=== PATIENT | female | born 1985 | race African-American/Black ===

== ENCOUNTER 2019-02-26 16:41 | Emergency (ER) | payer SELFPAY ==
[~2019-02-26 16:41] MED LIST: Iopamidol-370 76% 500 ML 1 ML ONE
[2019-02-26] MEDS ORDERED: Ondansetron PF 4 MG/2 ML Vial ONE ×2 (20:34→22:09)
[2019-02-26 20:55] LABS: #Lymphocytes 1.9 thou/uL (1.20-3.40); #Monocytes 0.5 thou/uL (0.11-0.59); #Neutrophils 4.6 thou/uL (1.40-6.50); %Basophils 0.3 % (0.0-1.0); %Eosinophils 0.5 % (0.0-10.0); %Lymphocytes 27.3 % (21.0-51.0); %Monocytes 6.7 % (0.0-10.0); %Neutrophils 65.2 % (42.0-75.0); Hemoglobin 15.2 g/dL (12.0-18.0); Mean Corpuscular HGB CONC 33.7 g/dL (32.0-36.0); Mean Corpuscular Hemoglobin 29.1 pg (27.0-31.0); Mean Corpuscular Volume 86.3 fL (78.0-98.0); Platelet Count 280 thou/uL (130-400); RBC Distribution Width 11.7 % (11.5-14.5); Red Blood Cell (RBC) Count 5.22 mill/uL (4.20-6.10); White Blood Cell (WBC) Count 7.1 thou/uL (4.8-10.8)
--- NOTE | 2019-02-26 21:07 | CT ---
EXAM: Abdomen and pelvic CT scan with contrast: HISTORY: Abdominal pain, nausea, and vomiting COMPARISON: None FINDINGS: The visualized lung bases are clear. Liver: Unremarkable. Gallbladder:Status post cholecystectomy without ductal dilatation. Pancreas:Unremarkable Spleen:Unremarkable. Adrenal glands:Unremarkable. Kidneys:No renal calculus or acute obstruction. Very tiny right kidney hypodense focus, statistically a small cyst. No evidence for bowel obstruction. No CT evidence for acute appendicitis. The urinary bladder is unremarkable. Reproductive system:Unremarkable No abscess, adenopathy, or abnormal fluid collection within the abdomen or pelvis. IMPRESSION: No significant acute process in the abdomen or pelvis.
[2019-02-26 21:17] LABS: ALT (SGPT) 12 U/L (8-55); AST (SGOT) 14 U/L (5-34); Albumin 5.2 g/dL (3.5-5.0); Alkaline Phosphatase 103 U/L (40-110); Anion Gap 12 mmol/L (10-20); BUN (Urea Nitrogen) 5 mg/dL (7.0-20.6); Bilirubin, Total 1.1 mg/dL (0.2-1.2); Calcium 10.5 mg/dL (7.8-10.44); Carbon Dioxide 28 mmol/L (22-29); Chloride 102 mmol/L (98-107); Estimated GFR-MDRD Greater than 90; Globulin 3.4 g/dL (2.4-3.5); Glucose 76 mg/dL (70-105); Lipase 10 U/L (8-78); Potassium 3.1 mmol/L (3.5-5.1); Protein, Total 8.6 g/dL (6.0-8.3); Sodium 139 mmol/L (136-145)
[2019-02-26] MEDS ORDERED: Acetaminophen 500 MG TAB ONE (22:09)
[2019-02-26] MEDS ORDERED: Promethazine HCl 25 MG/ML VIAL ONE (22:09)
[2019-02-26 23:19] LABS: Clarity Hazy (Clear)
[2019-02-26 23:20] LABS: Protein, Urine (Dipstick) Unable to Interpret mg/dL (Neg-Trace)
[2019-02-26 23:21] LABS: Bilirubin Unable to Interpret (Negative); Blood, Urine Unable to Interpret (Negative); Glucose, Urine (Dipstick) Unable to Interpret mg/dL (Negative); Leukocyte Unable to Interpret (Negative); Nitrite Unable to Interpret (Negative); Pregnancy Test - Urine (BHCG) Negative (Negative); Pregu Control Background? CLEAR/WHITE (CLR/WHITE); Pregu Control Bar Appear? YES (CONTROL BAR); Specific Gravity 1.022 (1.002-1.036); Urobilinogen UNABLE TO INTERPRET mg/dL (Less than 2)
[2019-02-26 23:23] LABS: Bacteria/HPF 1+ HPF (None Seen); Mucous/LPF 2+ LPF (<2+)
[2019-02-26] MEDS ORDERED: HYDROcodone/Acetaminophen 5/325 mg Tablet ONE (23:46)
[2019-02-26] MEDS ORDERED: Potassium Chloride 20 MEQ TAB ONE (23:56)
== END 2019-02-26 23:56 | disposition home or self-care (01) ==
LOC: ERS 16:41
DX: N39.0 Urinary tract infection, site not specified (principal); E11.9 Type 2 diabetes mellitus without complications; I10 Essential (primary) hypertension; F32.9 Major depressive disorder, single episode, unspecified; F41.9 Anxiety disorder, unspecified; Z79.899 Other long term (current) drug therapy
CPT/HCPCS: 74177; 80053; 81003; 81015; 81025; 83690; 85025; 87086; 96374; 96375; 96376; J2405; J2550; Q9967

== ENCOUNTER 2023-06-28 08:29 | Emergency (ER) | payer BC, SELFPAY ==
[2023-06-28] MEDS ORDERED: Acetaminophen 500 MG TAB ONE (10:19)
[2023-06-28] MEDS ORDERED: Ibuprofen 200 MG TAB ONE (10:20)
== END 2023-06-28 10:30 | disposition home or self-care (01) ==
LOC: ERS 08:29
DX: M79.641 Pain in right hand (principal); I10 Essential (primary) hypertension; E11.9 Type 2 diabetes mellitus without complications
CPT/HCPCS: 99283

== ENCOUNTER 2024-01-21 19:42 | Emergency (ER) | payer BC, OTHER ==
[2024-01-21] MEDS ORDERED: Ketorolac Tromethamine 30 MG (1 mL) VIAL ONE (21:39)
== END 2024-01-21 22:06 | disposition home or self-care (01) ==
LOC: ERS 19:42
DX: R59.0 Localized enlarged lymph nodes (principal); I10 Essential (primary) hypertension; E11.9 Type 2 diabetes mellitus without complications; Z76.0 Encounter for issue of repeat prescription
CPT/HCPCS: 96372; 99283; J1885

== ENCOUNTER 2024-02-20 17:44 | Emergency (ER) | payer OTHER ==
[2024-02-20] MEDS ORDERED: Dexamethasone 10 MG/ML VIAL ONE (18:38)
[2024-02-20 18:49] LABS: #Basophils 0.05 10x3/uL (0.0-0.2); %Basophils 0.8 % (0.0-1.0); %Eosinophils 6.3 % (0.0-10.0); %Lymphocytes 52.1 % (21.0-51.0); %Monocytes 7.6 % (0.0-10.0); %Neutrophils 32.9 % (42.0-75.0); Hematocrit 38.1 % (36.0-47.0); Hemoglobin 12.8 g/dL (12.0-16.0); Mean Corpuscular HGB CONC 33.6 g/dL (32.0-36.0); Mean Corpuscular Volume 83.4 fL (78.0-98.0); Mean Platelet Volume 9.4 fL (7.4-10.4); Platelet Count 241 10x3/uL (130-400); RBC Distribution Width 13.1 % (11.5-14.5); Red Blood Cell (RBC) Count 4.57 mill/uL (4.20-5.40)
[2024-02-20 19:04] LABS: BHCG - Serum Negative (NEGATIVE); Pregs Control Background? CLEAR/WHITE (CLR/WHITE); Pregs Control Bar Appear? YES (CONTROL BAR)
[2024-02-20 19:10] LABS: ALT (SGPT) 18 U/L (8-55); AST (SGOT) 16 U/L (5-34); Albumin 3.6 g/dL (3.5-5.0); Alkaline Phosphatase 79 U/L (40-110); Anion Gap 11 mmol/L (10-20); BUN (Urea Nitrogen) 9 mg/dL (7.0-18.7); Bilirubin, Total 0.4 mg/dL (0.2-1.2); Calc. Creatinine Clearance 0 mL/min (70-130); Calcium 8.5 mg/dL (7.8-10.44); Carbon Dioxide 27 mmol/L (22-29); Chloride 106 mmol/L (98-107); Estimated GFR 95; Globulin 3.1 g/dL (2.4-3.5); Glucose 94 mg/dL (70-105); Lipase 20 U/L (8-78); Potassium 3.6 mmol/L (3.5-5.1); Protein, Total 6.7 g/dL (6.0-8.3); Sodium 140 mmol/L (136-145)
[2024-02-20] MEDS ORDERED: Ondansetron ODT 4 MG TAB ONE (20:28)
[2024-02-20] MEDS ORDERED: Ibuprofen 200 MG TAB ONE (20:28)
[2024-02-20] MEDS ORDERED: Acetaminophen 500 MG TAB ONE (20:28)
[2024-02-20] MEDS ORDERED: Diazepam 5 MG TAB ONE (20:51)
[2024-02-20 21:35] LABS: MONO NEGATIVE CONTROL ZONE White (Negative) (White); MONO POSITIVE CONTROL Pink Line (Positive) (PINK/RED); Mononucleosis NEGATIVE (NEGATIVE)
== END 2024-02-20 20:40 | disposition home or self-care (01) ==
LOC: ERS 17:44
DX: B34.9 Viral infection, unspecified (principal); I10 Essential (primary) hypertension; E11.9 Type 2 diabetes mellitus without complications; Z55.6 Problems related to health literacy
CPT/HCPCS: 36415; 80053; 83690; 84703; 85025; 86308; 87081; 87430; 93005; 99283; J1100; Q0162

== ENCOUNTER 2024-02-21 12:12 | Inpatient (IN) | payer OTHER ==
[2024-02-21 13:01] LABS: #Basophils 0.03 10x3/uL (0.0-0.2); #Eosinophils Less than 0.03 10x3/uL (0.0-0.7); %Basophils 0.2 % (0.0-1.0); %Lymphocytes 7.8 % (21.0-51.0); %Monocytes 4.4 % (0.0-10.0); %Neutrophils 86.6 % (42.0-75.0); Hematocrit 36.8 % (36.0-47.0); Hemoglobin 12.1 g/dL (12.0-16.0); Mean Corpuscular HGB CONC 32.9 g/dL (32.0-36.0); Mean Corpuscular Hemoglobin 27.6 pg (27.0-31.0); Mean Platelet Volume 9.9 fL (7.4-10.4); Platelet Count 257 10x3/uL (130-400); RBC Distribution Width 12.9 % (11.5-14.5); Red Blood Cell (RBC) Count 4.38 mill/uL (4.20-5.40)
[2024-02-21 13:26] LABS: ALT (SGPT) 43 U/L (8-55); AST (SGOT) 37 U/L (5-34); Albumin 3.8 g/dL (3.5-5.0); Alkaline Phosphatase 86 U/L (40-110); Anion Gap 10 mmol/L (10-20); BUN (Urea Nitrogen) 10 mg/dL (7.0-18.7); Bilirubin, Total 0.3 mg/dL (0.2-1.2); Calc. Creatinine Clearance 0 mL/min (70-130); Calcium 9.1 mg/dL (7.8-10.44); Carbon Dioxide 27 mmol/L (22-29); Chloride 105 mmol/L (98-107); Estimated GFR 98; Glucose 164 mg/dL (70-105); Potassium 4.2 mmol/L (3.5-5.1); Protein, Total 6.8 g/dL (6.0-8.3); Sodium 138 mmol/L (136-145)
[2024-02-21] MEDS ORDERED: HYDROcodone/Acetaminophen 5/325 mg Tablet ONE (13:38)
[2024-02-21] MEDS ORDERED: Sodium Chloride 0.9% 100 ML ONE (13:38)
[2024-02-21] MEDS ORDERED: Ondansetron PF 4 MG/2 ML Vial ONE (13:38)
[2024-02-21] MEDS ORDERED: cefTRIAXone (ROCEPHIN) 1 GM VIAL ONE (13:38)
[2024-02-21] MEDS ORDERED: HYDROmorphone 0.5 MG/0.5 ML SYRINGE ONE (15:08)
[2024-02-21 16:14] LABS: Lactic Acid 1.61 mmol/L (0.5-2.2)
[2024-02-21 16:30] LABS: Bilirubin Negative (Negative); Blood, Urine Negative (Negative); CAUTI Indications for Culture Dysuria,urgency,freq; Clarity Turbid (Clear); Glucose, Urine (Dipstick) Normal (Negative); Ketone, Urine Negative (Negative); Leukocyte Negative Leu/uL (Negative); Nitrite Negative (Negative); Protein, Urine (Dipstick) 20 mg/dL (Neg-Trace); Specific Gravity, Urine 1.012 (1.002-1.036); Urobilinogen Normal mg/dL (Less than 2); pH, Urine 7.5 (5.0-9.0)
[2024-02-21 16:51] LABS: Urine Culture Reflex No No
[2024-02-21 16:57] LABS: Bacteria/HPF 4+ HPF (None Seen); RBC/HPF 0-3 HPF (0-3)
[2024-02-21 16:58] LABS: Urine Culture Reflex Yes Yes; Yeast-Budding 1+ HPF (None Seen)
[2024-02-21] MEDS ORDERED: Ketorolac Tromethamine 30 MG (1 mL) VIAL IVP PRN (18:54)
[2024-02-21] MEDS ORDERED: Acetaminophen 325 MG TAB PO PRN (18:54)
[2024-02-21 20:08] LABS: Hemoglobin A1c 5.4 % (4.0-6.0)
[2024-02-21 21:29] VITALS: BMI 29.7
[2024-02-21] MEDS: hydrOXYzine 25 MG TAB PO SCH (21:59)
[2024-02-21] MEDS: Enoxaparin 40 MG (0.4 mL) SYRINGE SC SCH (21:59)
[2024-02-21] MEDS: Sodium Chloride 0.9% 1,000 ML IV SCH (21:59)
[2024-02-21] MEDS: Morphine 2 MG/ML VIAL SLOW IVP PRN (21:59)
[2024-02-21] MEDS: traMADol HCl 50 MG TAB PO PRN (22:09)
[2024-02-21] MEDS: HYDROmorphone 0.5 MG/0.5 ML SYRINGE SLOW IVP SCH (23:56)
[2024-02-22] MEDS: HYDROcodone/Acetaminophen 10/325 mg Tablet PO PRN (04:19)
[2024-02-22 05:49] LABS: #Basophils 0.06 10x3/uL (0.0-0.2); %Basophils 0.4 % (0.0-1.0); %Eosinophils 0.5 % (0.0-10.0); %Lymphocytes 20.1 % (21.0-51.0); %Monocytes 5.3 % (0.0-10.0); %Neutrophils 72.6 % (42.0-75.0); Hemoglobin 11.6 g/dL (12.0-16.0); Mean Corpuscular HGB CONC 33.1 g/dL (32.0-36.0); Mean Corpuscular Hemoglobin 28.1 pg (27.0-31.0); Mean Corpuscular Volume 84.7 fL (78.0-98.0); Mean Platelet Volume 9.6 fL (7.4-10.4); Platelet Count 234 10x3/uL (130-400); RBC Distribution Width 13.2 % (11.5-14.5); Red Blood Cell (RBC) Count 4.13 mill/uL (4.20-5.40)
[2024-02-22 06:03] LABS: Anion Gap 12 mmol/L (10-20); BUN (Urea Nitrogen) 11 mg/dL (7.0-18.7); Calc. Creatinine Clearance 128 mL/min (70-130); Calcium 8.1 mg/dL (7.8-10.44); Carbon Dioxide 24 mmol/L (22-29); Chloride 108 mmol/L (98-107); Estimated GFR 111; Glucose 124 mg/dL (70-105); Potassium 4.2 mmol/L (3.5-5.1); Sodium 140 mmol/L (136-145)
[2024-02-22] MEDS: Ondansetron PF 4 MG/2 ML Vial IVP PRN (06:19)
[2024-02-22] MEDS: Enoxaparin 40 MG (0.4 mL) SYRINGE SC SCH (08:23)
[2024-02-22] MEDS ORDERED: Ketorolac Tromethamine 30 MG (1 mL) VIAL IVP SCH (08:45)
[2024-02-22] MEDS: Pantoprazole DR 40 MG TAB PO SCH (09:58)
[2024-02-22] MEDS ORDERED: Fentanyl 100 MCG/2 ML VIAL SLOW IVP PRN (12:43)
[2024-02-22] MEDS: cefTRIAXone\\ROCEPHIN 1 GM in Sodium Chloride 0.9% 100 ML IVPB SCH (13:33)
[2024-02-22] MEDS: fentaNYL 50 mcg/mL 1 mL Vial SLOW IVP PRN (13:33)
[2024-02-22] MEDS: Ibuprofen 800 MG TAB PO SCH (19:43)
[2024-02-23 04:28] LABS: #Basophils 0.04 10x3/uL (0.0-0.2); %Basophils 0.5 % (0.0-1.0); %Eosinophils 3.8 % (0.0-10.0); %Lymphocytes 39.8 % (21.0-51.0); %Monocytes 6.9 % (0.0-10.0); %Neutrophils 47.7 % (42.0-75.0); Hematocrit 32.7 % (36.0-47.0); Hemoglobin 10.7 g/dL (12.0-16.0); Mean Corpuscular HGB CONC 32.7 g/dL (32.0-36.0); Mean Corpuscular Hemoglobin 28.1 pg (27.0-31.0); Mean Corpuscular Volume 85.8 fL (78.0-98.0); Mean Platelet Volume 9.8 fL (7.4-10.4); Platelet Count 205 10x3/uL (130-400); RBC Distribution Width 13.9 % (11.5-14.5); Red Blood Cell (RBC) Count 3.81 mill/uL (4.20-5.40)
[2024-02-23 04:57] LABS: Anion Gap 11 mmol/L (10-20); BUN (Urea Nitrogen) 18 mg/dL (7.0-18.7); Calc. Creatinine Clearance 104 mL/min (70-130); Calcium 8.3 mg/dL (7.8-10.44); Carbon Dioxide 27 mmol/L (22-29); Chloride 108 mmol/L (98-107); Estimated GFR 87; Glucose 98 mg/dL (70-105); Potassium 4.1 mmol/L (3.5-5.1); Sodium 142 mmol/L (136-145)
[2024-02-23 08:02] VITALS: TEMP 97.7
[2024-02-23] MEDS ORDERED: ALPRAZolam 1 MG TAB PO PRN (08:55)
[2024-02-23] MEDS: Bupropion 150 MG SR.TAB PO SCH (09:21)
[2024-02-23] MEDS: Escitalopram Oxalate 10 mg Tablet PO SCH (09:21)
[2024-02-23] MEDS: Polyethylene Glycol 3350 17 GM Packet PO SCH (10:54)
[2024-02-23] MEDS: Bisacodyl 5 MG TAB PO SCH (10:54)
[2024-02-23] MEDS: Cyclobenzaprine 10 MG TAB PO SCH (11:11)
[2024-02-23 12:14] VITALS: BP 126/84
[2024-02-23] MEDS ORDERED: Cyclobenzaprine 10 MG TAB PO SCH (15:00)
[2024-02-24] MEDS ORDERED: Polyethylene Glycol 3350 17 GM Packet PO SCH (09:00)
== END 2024-02-23 14:38 | disposition home or self-care (01) | DRG 690 ==
LOC: ERS 12:12 → T4-A 18:24
PROVIDERS: ADMIT Internal Medicine; ATTEND Internal Medicine
DX: N10 Acute pyelonephritis (principal); I10 Essential (primary) hypertension; E11.9 Type 2 diabetes mellitus without complications; Z90.49 Acquired absence of other specified parts of digestive tract; F41.9 Anxiety disorder, unspecified; F32.A Depression, unspecified; Z90.710 Acquired absence of both cervix and uterus; Z88.8 Allergy status to other drugs, medicaments and biological substances; Z82.49 Family history of ischemic heart disease and other diseases of the circulatory system; Z83.3 Family history of diabetes mellitus; Z79.899 Other long term (current) drug therapy; N20.0 Calculus of kidney
CPT/HCPCS: 36415; 36416; 74176; 76770; 80048; 80053; 81001; 83036; 83605; 85025; 87040; 87086; 96374; 96375; J0696; J1650; J2272; J2405; J3010; J7030

== ENCOUNTER 2024-02-25 21:16 | Emergency (ER) | payer OTHER ==
[~2024-02-25 21:16] MED LIST changes: -Iopamidol-370 76% 500 ML 1 ML ONE; +Iopamidol-370 76% 500 ML MDV (1 ML CHARGE) ONE
[2024-02-25] MEDS ORDERED: Ondansetron PF 4 MG/2 ML Vial ONE (21:53)
[2024-02-25 22:29] LABS: #Basophils 0.03 10x3/uL (0.0-0.2); %Basophils 0.6 % (0.0-1.0); %Eosinophils 2.7 % (0.0-10.0); %Lymphocytes 36.7 % (21.0-51.0); %Monocytes 9.4 % (0.0-10.0); %Neutrophils 49.4 % (42.0-75.0); Hematocrit 34.8 % (36.0-47.0); Hemoglobin 11.3 g/dL (12.0-16.0); Mean Corpuscular HGB CONC 32.5 g/dL (32.0-36.0); Mean Corpuscular Volume 86.4 fL (78.0-98.0); Mean Platelet Volume 9.2 fL (7.4-10.4); Platelet Count 197 10x3/uL (130-400); RBC Distribution Width 13.6 % (11.5-14.5); Red Blood Cell (RBC) Count 4.03 mill/uL (4.20-5.40)
[2024-02-25 22:46] LABS: Bilirubin Negative (Negative); Blood, Urine Negative (Negative); CAUTI Indications for Culture Pelvic or flank pain; Clarity Clear (Clear); Glucose, Urine (Dipstick) Normal (Negative); Ketone, Urine Negative (Negative); Leukocyte Negative Leu/uL (Negative); Nitrite Negative (Negative); Protein, Urine (Dipstick) Negative (Neg-Trace); RBC/HPF None Seen HPF (0-3); Specific Gravity, Urine 1.004 (1.002-1.036); Squamous Epithelial 0-3 HPF (0-3); Urobilinogen Normal mg/dL (Less than 2); WBC/HPF 0-3 HPF (0-3); pH, Urine 7.5 (5.0-9.0)
[2024-02-25 22:47] LABS: Bacteria/HPF Rare-Few HPF (None Seen); Urine Culture Reflex No No
[2024-02-25 22:48] LABS: ALT (SGPT) 169 U/L (8-55); AST (SGOT) 141 U/L (5-34); Albumin 3.6 g/dL (3.5-5.0); Alkaline Phosphatase 77 U/L (40-110); Anion Gap 13 mmol/L (10-20); BUN (Urea Nitrogen) 15 mg/dL (7.0-18.7); Bilirubin, Total 0.5 mg/dL (0.2-1.2); Calc. Creatinine Clearance 0 mL/min (70-130); Carbon Dioxide 24 mmol/L (22-29); Chloride 106 mmol/L (98-107); Estimated GFR 88; Glucose 92 mg/dL (70-105); Lipase 16 U/L (8-78); Potassium 4.5 mmol/L (3.5-5.1); Protein, Total 6.6 g/dL (6.0-8.3); Sodium 138 mmol/L (136-145)
[2024-02-25] MEDS ORDERED: HYDROcodone/Acetaminophen 5/325 mg Tablet ONE (23:14)
== END 2024-02-26 00:02 | disposition home or self-care (01) ==
LOC: ERS 21:16
DX: R10.9 Unspecified abdominal pain (principal); I10 Essential (primary) hypertension; E11.9 Type 2 diabetes mellitus without complications
CPT/HCPCS: 36415; 74177; 80053; 81001; 83605; 83690; 85025; 96374; J2405; Q9967

== ENCOUNTER 2024-03-15 17:33 | Emergency (ER) | payer OTHER ==
[2024-03-15] MEDS ORDERED: Ondansetron PF 4 MG/2 ML Vial ONE (17:47)
[2024-03-15] MEDS ORDERED: Morphine 4 MG/ML VIAL ONE (17:47)
[2024-03-15 18:05] LABS: #Basophils Less than 0.03 10x3/uL (0.0-0.2); %Basophils 0.4 % (0.0-1.0); %Eosinophils 5.3 % (0.0-10.0); %Lymphocytes 35.5 % (21.0-51.0); %Neutrophils 50.6 % (42.0-75.0); Hematocrit 38.7 % (36.0-47.0); Hemoglobin 12.9 g/dL (12.0-16.0); Mean Corpuscular HGB CONC 33.3 g/dL (32.0-36.0); Mean Corpuscular Hemoglobin 28.3 pg (27.0-31.0); Mean Corpuscular Volume 84.9 fL (78.0-98.0); Mean Platelet Volume 9.8 fL (7.4-10.4); Platelet Count 290 10x3/uL (130-400); RBC Distribution Width 13.4 % (11.5-14.5); Red Blood Cell (RBC) Count 4.56 mill/uL (4.20-5.40)
[2024-03-15 18:25] LABS: Bacteria/HPF None Seen HPF (None Seen); Bilirubin Negative (Negative); Blood, Urine Negative (Negative); CAUTI Indications for Culture Pelvic or flank pain; Clarity Turbid (Clear); Glucose, Urine (Dipstick) Normal (Negative); Ketone, Urine Negative (Negative); Leukocyte 25 Leu/uL (Negative); Nitrite Negative (Negative); Protein, Urine (Dipstick) 10 mg/dL (Neg-Trace); RBC/HPF 0-3 HPF (0-3); Specific Gravity, Urine 1.019 (1.002-1.036); Urobilinogen Normal mg/dL (Less than 2); WBC/HPF 0-3 HPF (0-3); pH, Urine 7.5 (5.0-9.0)
[2024-03-15 18:26] LABS: ALT (SGPT) 37 U/L (8-55); AST (SGOT) 36 U/L (5-34); Albumin 3.9 g/dL (3.5-5.0); Alkaline Phosphatase 83 U/L (40-110); Anion Gap 13 mmol/L (10-20); BUN (Urea Nitrogen) 16 mg/dL (7.0-18.7); Bilirubin, Total 0.6 mg/dL (0.2-1.2); Calc. Creatinine Clearance 0 mL/min (70-130); Carbon Dioxide 24 mmol/L (22-29); Chloride 111 mmol/L (98-107); Estimated GFR 69; Globulin 3.4 g/dL (2.4-3.5); Glucose 68 mg/dL (70-105); Potassium 4.9 mmol/L (3.5-5.1); Protein, Total 7.3 g/dL (6.0-8.3); Sodium 143 mmol/L (136-145)
[2024-03-15 18:27] LABS: Urine Culture Reflex No No
[2024-03-15 18:31] LABS: BHCG - Serum Negative (NEGATIVE); Pregs Control Background? CLEAR/WHITE (CLR/WHITE); Pregs Control Bar Appear? YES (CONTROL BAR)
[2024-03-15] MEDS ORDERED: traMADol HCl 50 MG TAB ONE ×2 (19:49→19:57)
== END 2024-03-15 20:06 | disposition home or self-care (01) ==
LOC: ERS 17:33
DX: R10.9 Unspecified abdominal pain (principal); R30.0 Dysuria; E11.9 Type 2 diabetes mellitus without complications; I10 Essential (primary) hypertension
CPT/HCPCS: 74176; 80053; 81001; 83605; 84703; 85025; 87086; 96374; 96375; J2272; J2405

== ENCOUNTER 2024-03-16 02:43 | Emergency (ER) | payer OTHER ==
[2024-03-16] MEDS ORDERED: Dicyclomine 20 MG/2 ML VIAL ONE (04:18)
== END 2024-03-16 04:40 | disposition home or self-care (01) ==
LOC: ERS 02:43
DX: M54.50 Low back pain, unspecified (principal); I10 Essential (primary) hypertension; E11.9 Type 2 diabetes mellitus without complications
CPT/HCPCS: 96372; 99283

== ENCOUNTER 2024-03-16 21:13 | Emergency (ER) | payer OTHER ==
[2024-03-16 21:45] LABS: #Basophils Less than 0.03 10x3/uL (0.0-0.2); %Basophils 0.4 % (0.0-1.0); %Eosinophils 6.1 % (0.0-10.0); %Lymphocytes 35.4 % (21.0-51.0); %Neutrophils 50.9 % (42.0-75.0); Hematocrit 36.3 % (36.0-47.0); Hemoglobin 11.8 g/dL (12.0-16.0); Mean Corpuscular HGB CONC 32.5 g/dL (32.0-36.0); Mean Corpuscular Hemoglobin 28.4 pg (27.0-31.0); Mean Corpuscular Volume 87.3 fL (78.0-98.0); Mean Platelet Volume 9.8 fL (7.4-10.4); Platelet Count 253 10x3/uL (130-400); RBC Distribution Width 13.8 % (11.5-14.5); Red Blood Cell (RBC) Count 4.16 mill/uL (4.20-5.40)
[2024-03-16 22:00] LABS: BHCG - Serum Negative (NEGATIVE); Pregs Control Background? CLEAR/WHITE (CLR/WHITE); Pregs Control Bar Appear? YES (CONTROL BAR)
[2024-03-16 22:06] LABS: ALT (SGPT) 30 U/L (8-55); AST (SGOT) 24 U/L (5-34); Albumin 3.8 g/dL (3.5-5.0); Alkaline Phosphatase 85 U/L (40-110); Anion Gap 12 mmol/L (10-20); BUN (Urea Nitrogen) 17 mg/dL (7.0-18.7); Bilirubin, Total 0.4 mg/dL (0.2-1.2); Calc. Creatinine Clearance 0 mL/min (70-130); Calcium 8.8 mg/dL (7.8-10.44); Carbon Dioxide 23 mmol/L (22-29); Chloride 111 mmol/L (98-107); Estimated GFR 86; Glucose 117 mg/dL (70-105); Potassium 4.3 mmol/L (3.5-5.1); Protein, Total 6.8 g/dL (6.0-8.3); Sodium 142 mmol/L (136-145)
[2024-03-17 00:24] LABS: Bilirubin Negative (Negative); Blood, Urine Negative (Negative); CAUTI Indications for Culture Dysuria,urgency,freq; Clarity Clear (Clear); Glucose, Urine (Dipstick) Normal (Negative); Ketone, Urine Negative (Negative); Leukocyte 250 Leu/uL (Negative); Nitrite Negative (Negative); Protein, Urine (Dipstick) Negative (Neg-Trace); RBC/HPF 0-3 HPF (0-3); Specific Gravity, Urine 1.021 (1.002-1.036); Urobilinogen Normal mg/dL (Less than 2); WBC/HPF 0-3 HPF (0-3)
[2024-03-17 00:26] LABS: Bacteria/HPF 1+ HPF (None Seen)
[2024-03-17 00:27] LABS: Urine Culture Reflex No No
[2024-03-17] MEDS ORDERED: Droperidol 5 MG/2 ML VIAL ONE (01:08)
[2024-03-17] MEDS ORDERED: Morphine 4 MG/ML VIAL ONE (01:08)
== END 2024-03-17 01:48 | disposition home or self-care (01) ==
LOC: ERS 21:13
DX: R10.9 Unspecified abdominal pain (principal); R11.2 Nausea with vomiting, unspecified; E11.9 Type 2 diabetes mellitus without complications; I10 Essential (primary) hypertension; Z79.899 Other long term (current) drug therapy
CPT/HCPCS: 36415; 80053; 81001; 83605; 84703; 85025; 96374; 96375; J1790; J2272

== ENCOUNTER 2024-04-06 10:20 | Emergency (ER) | payer OTHER ==
[2024-04-06] MEDS ORDERED: Dexamethasone 10 MG/ML VIAL ONE (11:28)
[2024-04-06] MEDS ORDERED: Ibuprofen 800 MG TAB ONE (11:29)
[2024-04-06] MEDS ORDERED: Metoprolol Tartrate 25 MG TAB ONE (11:43)
== END 2024-04-06 11:46 | disposition home or self-care (01) ==
LOC: ERS 10:20
DX: J18.9 Pneumonia, unspecified organism (principal); I10 Essential (primary) hypertension; E11.9 Type 2 diabetes mellitus without complications
CPT/HCPCS: 87081; 87430; 99283; J1100

== ENCOUNTER 2024-04-06 17:13 | Observation (INO) | payer OTHER ==
[2024-04-06] MEDS ORDERED: Ondansetron PF 4 MG/2 ML Vial ONE ×2 (18:47→23:18)
[2024-04-06 18:49] LABS: #Basophils Less than 0.03 10x3/uL (0.0-0.2); #Eosinophils Less than 0.03 10x3/uL (0.0-0.7); %Basophils 0.1 % (0.0-1.0); %Eosinophils 0.1 % (0.0-10.0); %Lymphocytes 7.1 % (21.0-51.0); %Monocytes 0.9 % (0.0-10.0); %Neutrophils 91.1 % (42.0-75.0); Hematocrit 39.2 % (36.0-47.0); Hemoglobin 13.3 g/dL (12.0-16.0); Mean Corpuscular HGB CONC 33.9 g/dL (32.0-36.0); Mean Corpuscular Hemoglobin 27.8 pg (27.0-31.0); Mean Corpuscular Volume 81.8 fL (78.0-98.0); Mean Platelet Volume 9.7 fL (7.4-10.4); Platelet Count 277 10x3/uL (130-400); RBC Distribution Width 13.5 % (11.5-14.5); Red Blood Cell (RBC) Count 4.79 mill/uL (4.20-5.40)
[2024-04-06 19:06] LABS: ALT (SGPT) 27 U/L (8-55); AST (SGOT) 25 U/L (5-34); Albumin 4.1 g/dL (3.5-5.0); Alkaline Phosphatase 87 U/L (40-110); Anion Gap 15 mmol/L (10-20); BUN (Urea Nitrogen) 13 mg/dL (7.0-18.7); Bilirubin, Total 0.3 mg/dL (0.2-1.2); Calc. Creatinine Clearance 0 mL/min (70-130); Calcium 8.8 mg/dL (7.8-10.44); Carbon Dioxide 19 mmol/L (22-29); Chloride 113 mmol/L (98-107); Estimated GFR 81; Globulin 3.5 g/dL (2.4-3.5); Glucose 116 mg/dL (70-105); Lipase 19 U/L (8-78); Magnesium 1.9 mg/dL (1.6-2.6); Potassium 4.6 mmol/L (3.5-5.1); Protein, Total 7.6 g/dL (6.0-8.3); Sodium 142 mmol/L (136-145)
[2024-04-06 19:43] LABS: Troponin I Less than 0.010 ng/mL (< 0.028)
[2024-04-06] MEDS ORDERED: Ibuprofen 800 MG TAB ONE (19:46)
[2024-04-06] MEDS ORDERED: Promethazine HCl 25 MG/ML VIAL ONE (21:13)
[2024-04-06] MEDS ORDERED: diphenhydrAMINE 50 MG/ML VIAL ONE (21:13)
[2024-04-06 21:41] LABS: Lactic Acid 1.65 mmol/L (0.5-2.2)
[2024-04-06] MEDS ORDERED: Morphine 4 MG/ML VIAL ONE (22:38)
[2024-04-06 23:33] LABS: Bacteria/HPF None Seen HPF (None Seen); Bilirubin Negative (Negative); Blood, Urine Negative (Negative); CAUTI Indications for Culture Fever or rigors; Clarity Clear (Clear); Glucose, Urine (Dipstick) Normal (Negative); Ketone, Urine Negative (Negative); Leukocyte Negative Leu/uL (Negative); Nitrite Negative (Negative); Protein, Urine (Dipstick) Negative (Neg-Trace); RBC/HPF 0-3 HPF (0-3); Specific Gravity, Urine 1.022 (1.002-1.036); Urobilinogen Normal mg/dL (Less than 2); WBC/HPF 0-3 HPF (0-3)
[2024-04-06 23:35] LABS: Urine Culture Reflex No No
[2024-04-06] MEDS ORDERED: cefTRIAXone (ROCEPHIN) 2 GM VIAL ONE (23:59)
[2024-04-06] MEDS ORDERED: Sodium Chloride 0.9% 100 ML ONE (23:59)
[2024-04-07] MEDS ORDERED: Dextrose 50% Abboject 50 ML SYRINGE SLOW IVP PRN (01:14)
[2024-04-07] MEDS ORDERED: Glucagon 1 MG/ML KIT IM PRN (01:14)
[2024-04-07] MEDS ORDERED: Dextrose 5% in Water 1,000 ML IV PRN (01:14)
[2024-04-07 01:41] LABS: Amphetamine Not Detected (NotDetected); Barbiturates Screen Not Detected (NotDetected); Benzodiazepine Screen Detected (NotDetected); Cocaine Metabolite Screen Not Detected (NotDetected); Methadone Not Detected (NotDetected); Methamphetamine Not Detected (NotDetected); Opiate Screen Not Detected (NotDetected); Oxycodone Screen Not Detected (NotDetected); Phencyclidine (PCP) Not Detected (NotDetected); THC/Cannabinoid Screen Not Detected (NotDetected); Tricyclic Screen Not Detected (NotDetected)
[2024-04-07] MEDS ORDERED: Azithromycin 500 MG VIAL ONE (01:41)
[2024-04-07 02:32] VITALS: BMI 35.6
[2024-04-07] MEDS: Lactated Ringer's 1,000 ML IV SCH (03:10)
[2024-04-07] MEDS: Acetaminophen 325 MG TAB PO PRN (03:10)
[2024-04-07] MEDS: Morphine 2 MG/ML VIAL SLOW IVP SCH (05:02)
[2024-04-07] MEDS: Zolpidem Tartrate 5 MG TAB PO SCH ×2 (05:02→23:48)
[2024-04-07 05:59] LABS: #Basophils Less than 0.03 10x3/uL (0.0-0.2); #Eosinophils Less than 0.03 10x3/uL (0.0-0.7); %Basophils 0.1 % (0.0-1.0); %Lymphocytes 9.3 % (21.0-51.0); %Monocytes 1.9 % (0.0-10.0); %Neutrophils 88.1 % (42.0-75.0); Hematocrit 34.8 % (36.0-47.0); Hemoglobin 11.5 g/dL (12.0-16.0); Mean Corpuscular Volume 84.9 fL (78.0-98.0); Mean Platelet Volume 10.1 fL (7.4-10.4); Platelet Count 248 10x3/uL (130-400); RBC Distribution Width 13.5 % (11.5-14.5)
[2024-04-07 06:09] LABS: Anion Gap 12 mmol/L (10-20); BUN (Urea Nitrogen) 10 mg/dL (7.0-18.7); Calc. Creatinine Clearance 150 mL/min (70-130); Calcium 8.2 mg/dL (7.8-10.44); Carbon Dioxide 21 mmol/L (22-29); Chloride 112 mmol/L (98-107); Estimated GFR 108; Glucose 124 mg/dL (70-105); Potassium 4.1 mmol/L (3.5-5.1); Sodium 141 mmol/L (136-145)
[2024-04-07] MEDS: Fioricet 325/50/40 mg Tablet PO PRN (06:30)
[2024-04-07] MEDS: Fioricet 325/50/40 mg Tablet PO SCH (07:20)
[2024-04-07] MEDS: Morphine 2 MG/ML VIAL SLOW IVP PRN (10:39)
[2024-04-07] MEDS ORDERED: hydrOXYzine 25 MG TAB PO PRN (15:10)
[2024-04-07] MEDS: tiZANidine HCl 4 MG TAB PO SCH (20:13)
[2024-04-07] MEDS: Butalbital 50 MG/Aspirin 325 MG/Caffeine 40 MG CAPSULE PO PRN (21:47)
[2024-04-08 05:38] LABS: #Basophils 0.03 10x3/uL (0.0-0.2); %Basophils 0.3 % (0.0-1.0); %Eosinophils 2.1 % (0.0-10.0); %Monocytes 5.5 % (0.0-10.0); %Neutrophils 56.8 % (42.0-75.0); Hematocrit 31.7 % (36.0-47.0); Hemoglobin 10.4 g/dL (12.0-16.0); Mean Corpuscular HGB CONC 32.8 g/dL (32.0-36.0); Mean Corpuscular Hemoglobin 27.7 pg (27.0-31.0); Mean Corpuscular Volume 84.5 fL (78.0-98.0); Mean Platelet Volume 9.6 fL (7.4-10.4); Platelet Count 208 10x3/uL (130-400); RBC Distribution Width 13.7 % (11.5-14.5); Red Blood Cell (RBC) Count 3.75 mill/uL (4.20-5.40)
[2024-04-08 05:56] LABS: Anion Gap 10 mmol/L (10-20); BUN (Urea Nitrogen) 10 mg/dL (7.0-18.7); Calc. Creatinine Clearance 128 mL/min (70-130); Calcium 8.4 mg/dL (7.8-10.44); Carbon Dioxide 26 mmol/L (22-29); Chloride 111 mmol/L (98-107); Estimated GFR 90; Glucose 114 mg/dL (70-105); Potassium 3.7 mmol/L (3.5-5.1); Sodium 143 mmol/L (136-145)
[2024-04-08] MEDS: Escitalopram Oxalate 20 mg Tablet PO SCH (09:56)
[2024-04-08] MEDS: BuPROPion XL 150 MG ER.TAB PO SCH (09:57)
[2024-04-08 13:25] VITALS: BP 124/81; TEMP 98.2
[2024-04-08] MEDS ORDERED: Zolpidem Tartrate 5 MG TAB PO SCH (21:00)
== END 2024-04-08 14:00 | disposition home or self-care (01) ==
LOC: ERS 17:13 → SURG B 04-07 01:07
PROVIDERS: ADMIT Internal Medicine; ATTEND Internal Medicine
DX: R11.2 Nausea with vomiting, unspecified (principal); I10 Essential (primary) hypertension; E11.9 Type 2 diabetes mellitus without complications; F41.9 Anxiety disorder, unspecified; G43.909 Migraine, unspecified, not intractable, without status migrainosus; F32.A Depression, unspecified; Z90.710 Acquired absence of both cervix and uterus; Z90.49 Acquired absence of other specified parts of digestive tract; Z79.899 Other long term (current) drug therapy
CPT/HCPCS: 36415; 36416; 70450; 71045; 80048; 80053; 80306; 81001; 83605; 83690; 83735; 84145; 84484; 85025; 87040; 87428; 93005; 96361; 96365; 96366; 96367; 96375; 96376; G0378; J0456; J0696; J0780; J1200; J2272; J2405; J2550; J7120

== ENCOUNTER 2024-04-09 07:28 | Emergency (ER) | payer OTHER ==
[2024-04-09] MEDS ORDERED: Ondansetron ODT 4 MG TAB ONE (07:59)
== END 2024-04-09 08:03 | disposition home or self-care (01) ==
LOC: ERS 07:28
DX: J18.9 Pneumonia, unspecified organism (principal); E11.9 Type 2 diabetes mellitus without complications; I10 Essential (primary) hypertension
CPT/HCPCS: 71046; 87428; Q0162

== ENCOUNTER 2024-04-09 17:21 | Emergency (ER) | payer OTHER ==
[2024-04-09] MEDS ORDERED: cefTRIAXone (ROCEPHIN) 2 GM VIAL ONE (18:00)
[2024-04-09] MEDS ORDERED: Azithromycin 500 MG VIAL ONE (18:00)
[2024-04-09 18:10] LABS: Bilirubin Negative (Negative); Blood, Urine Negative (Negative); CAUTI Indications for Culture Fever or rigors; Clarity Turbid (Clear); Glucose, Urine (Dipstick) Normal (Negative); Ketone, Urine Negative (Negative); Leukocyte Negative Leu/uL (Negative); Nitrite Negative (Negative); Protein, Urine (Dipstick) Negative (Neg-Trace); RBC/HPF 0-3 HPF (0-3); Specific Gravity, Urine 1.019 (1.002-1.036); Urobilinogen Normal mg/dL (Less than 2)
[2024-04-09] MEDS ORDERED: Prochlorperazine 10 MG/2 ML VIAL ONE (18:11)
[2024-04-09] MEDS ORDERED: Aspirin Chewable 81 MG TAB ONE (18:11)
[2024-04-09 18:18] LABS: Bacteria/HPF 1+ HPF (None Seen); Urine Culture Reflex No No
[2024-04-09 18:30] LABS: #Basophils 0.03 10x3/uL (0.0-0.2); %Basophils 0.5 % (0.0-1.0); %Eosinophils 6.4 % (0.0-10.0); %Lymphocytes 50.8 % (21.0-51.0); %Monocytes 6.9 % (0.0-10.0); %Neutrophils 34.9 % (42.0-75.0); Hematocrit 35.7 % (36.0-47.0); Mean Corpuscular HGB CONC 33.6 g/dL (32.0-36.0); Mean Corpuscular Hemoglobin 28.4 pg (27.0-31.0); Mean Corpuscular Volume 84.4 fL (78.0-98.0); Mean Platelet Volume 10.1 fL (7.4-10.4); Platelet Count 258 10x3/uL (130-400); RBC Distribution Width 13.4 % (11.5-14.5); Red Blood Cell (RBC) Count 4.23 mill/uL (4.20-5.40)
[2024-04-09 18:39] LABS: BHCG - Serum Negative (NEGATIVE); Pregs Control Background? CLEAR/WHITE (CLR/WHITE); Pregs Control Bar Appear? YES (CONTROL BAR)
[2024-04-09 18:45] LABS: ALT (SGPT) 28 U/L (8-55); AST (SGOT) 28 U/L (5-34); Albumin 3.7 g/dL (3.5-5.0); Alkaline Phosphatase 89 U/L (40-110); Anion Gap 15 mmol/L (10-20); BUN (Urea Nitrogen) 10 mg/dL (7.0-18.7); Bilirubin, Total 0.3 mg/dL (0.2-1.2); Calc. Creatinine Clearance 0 mL/min (70-130); Calcium 8.7 mg/dL (7.8-10.44); Carbon Dioxide 25 mmol/L (22-29); Chloride 110 mmol/L (98-107); Estimated GFR 95; Globulin 3.2 g/dL (2.4-3.5); Glucose 107 mg/dL (70-105); Lipase 24 U/L (8-78); Potassium 3.8 mmol/L (3.5-5.1); Protein, Total 6.9 g/dL (6.0-8.3); Sodium 146 mmol/L (136-145)
[2024-04-09 18:51] LABS: Troponin I Less than 0.010 ng/mL (< 0.028)
[2024-04-09] MEDS ORDERED: methylPREDNISolone Sod Succ/PF 125 MG/2 ML VIAL ONE (21:01)
[2024-04-09] MEDS ORDERED: Acetaminophen 500 MG TAB ONE (21:01)
[2024-04-09] MEDS ORDERED: Magnesium 2 GM/50 ML BAG (IN WATER) ONE (21:01)
[2024-04-09 21:08] LABS: Lactic Acid 1.37 mmol/L (0.5-2.2)
== END 2024-04-09 21:26 | disposition home or self-care (01) ==
LOC: ERS 17:21
DX: G43.909 Migraine, unspecified, not intractable, without status migrainosus (principal); B34.9 Viral infection, unspecified; E11.9 Type 2 diabetes mellitus without complications; Z79.899 Other long term (current) drug therapy
CPT/HCPCS: 36415; 71275; 80053; 81001; 83605; 83690; 84484; 84703; 85025; 87040; 93005; 94640; 94760; 96365; 96367; 96368; 96375; J0456; J0696; J0780; J2919; J3475; Q9967

== ENCOUNTER 2024-04-11 12:31 | Emergency (ER) | payer OTHER ==
[2024-04-11] MEDS ORDERED: Dexamethasone 10 MG/ML VIAL ONE (15:05)
[2024-04-11] MEDS ORDERED: HYDROcodone/Acetaminophen 10/325 mg Tablet ONE (15:39)
== END 2024-04-11 15:40 | disposition home or self-care (01) ==
LOC: ERS 12:31
DX: J18.9 Pneumonia, unspecified organism (principal); E11.9 Type 2 diabetes mellitus without complications
CPT/HCPCS: 96372; 99282; J1100

== ENCOUNTER 2024-10-26 22:23 | Inpatient (IN) | payer MEDICAID, OTHER ==
[2024-10-26] MEDS ORDERED: NOREPINEPHRINE 8 MG/250 ML-D5W 250 ML ONE (22:43)
[2024-10-26 23:08] LABS: #Basophils 0.03 10x3/uL (0.0-0.2); #Eosinophils Less than 0.03 10x3/uL (0.0-0.7); #Monocytes 0.71 10x3/uL (0.11-0.59); #Neutrophils 10.71 10x3/uL (1.40-6.50); %Basophils 0.2 % (0.0-1.0); %Eosinophils 0.1 % (0.0-10.0); %Lymphocytes 11.4 % (21.0-51.0); %Monocytes 5.3 % (0.0-10.0); %Neutrophils 80.7 % (42.0-75.0); Hematocrit 36.5 % (36.0-47.0); Hemoglobin 11.6 g/dL (12.0-16.0); Mean Corpuscular Hemoglobin 27.6 pg (27.0-31.0); Mean Corpuscular Volume 86.7 fL (78.0-98.0); Platelet Count 229 10x3/uL (130-400); Red Blood Cell (RBC) Count 4.21 mill/uL (4.20-5.40); White Blood Cell (WBC) Count 13.29 10x3/uL (4.8-10.8)
[2024-10-26] MEDS ORDERED: Ondansetron PF 4 MG/2 ML Vial ONE (23:25)
[2024-10-26 23:28] LABS: Acetaminophen Less than 10 mcg/mL (Less than 10); Salicylate Less than 8.0 mg/dL (Less than 8.0)
[2024-10-26] MEDS ORDERED: SODIUM CHLORIDE 0.9% IV PRN (23:30)
[2024-10-26] MEDS ORDERED: NALOXONE HCL IV PRN (23:30)
[2024-10-26 23:36] LABS: Bacteria/HPF None Seen HPF (None Seen); CAUTI Indications for Culture Urological Procedure; Glucose, Urine (Dipstick) Normal (Negative); Leukocyte Negative Leu/uL (Negative); Protein, Urine (Dipstick) Negative (Neg-Trace); RBC/HPF 0-3 HPF (0-3); WBC/HPF 0-3 HPF (0-3)
[2024-10-26 23:37] LABS: Specific Gravity, Urine Greater than 1.050 (1.002-1.036)
[2024-10-26 23:38] LABS: Urine Culture Reflex Yes Yes
[2024-10-26] MEDS ORDERED: Rocuronium Bromide 10 MG/ML (10ML VIAL) ONE (23:38)
[2024-10-26] MEDS ORDERED: Calcium Chloride 1 GM/10 ML Abboject SYRINGE ONE (23:38)
[2024-10-26] MEDS ORDERED: Etomidate 40 MG (20 mL) VIAL ONE (23:38)
[2024-10-26] MEDS ORDERED: Dextrose 50% Abboject 50 ML SYRINGE ONE (23:38)
[2024-10-26 23:39] LABS: ALT (SGPT) 671 U/L (Less than 34); AST (SGOT) 936 U/L (11-34); Albumin 4.0 g/dL (3.1-4.5); Alkaline Phosphatase 160 U/L (40-110); Anion Gap 19 mmol/L (10-20); BHCG - Serum Negative (NEGATIVE); BUN (Urea Nitrogen) 23 mg/dL (7.0-18.7); Bilirubin, Total 0.4 mg/dL (0.3-1.2); Calc. Creatinine Clearance 0 mL/min (70-130); Calcium 7.9 mg/dL (7.8-10.44); Carbon Dioxide 19 mmol/L (22-29); Chloride 107 mmol/L (98-107); Globulin 3.3 g/dL (2.4-3.5); Glucose 85 mg/dL (70-105); Potassium 8.0 mmol/L (3.5-5.1); Pregs Control Background? CLEAR/WHITE (CLR/WHITE); Pregs Control Bar Appear? YES (CONTROL BAR); Sodium 137 mmol/L (136-145)
[2024-10-26 23:45] LABS: Cocaine Metabolite Screen Negative (Negative); THC/Cannabinoid Screen Negative (Negative); Tricyclic Screen Negative (Negative)
[2024-10-27] MEDS ORDERED: Sodium Chloride 0.9% 500 ML BAG (BAXTER) ONE
[2024-10-27] MEDS ORDERED: Ondansetron PF 4 MG/2 ML Vial IVP PRN ×2 (00:17→00:30)
[2024-10-27] MEDS ORDERED: NOREPINEPHRINE 8 MG/250 ML-D5W 250 ML IVPB PRN (00:17)
[2024-10-27] MEDS ORDERED: Electrolyte Replacement Protocol 1 EACH IVPB PRN (00:17)
[2024-10-27 00:18] LABS: Magnesium 1.9 mg/dL (1.6-2.6)
[2024-10-27 00:25] LABS: Analyzer IN Cardio ER; Base Excess (BEa) -12.6 mEq/L (-2.0 to +3.0); CO2 Tension 34.8 mmHg (35.0-45.0); Calcium, Ionized (arterial) 1.19 mmol/L (1.12-1.30); Hematocrit-ABG 36 % (36.0-47.0); Hemoglobin (Hb) 12.2 g/dL (12.0-16.0); O2 Tension (PaO2), arterial 372.2 mmHg (80.0-100.0); pH, Arterial 7.223 (7.35-7.45)
[2024-10-27] MEDS ORDERED: Hydrocortisone Sod Succ/PF 100 mg/2 ml Vial ONE (00:26)
[2024-10-27] MEDS ORDERED: Albuterol 2.5 MG (3 mL) NEB ONE (00:27)
[2024-10-27 00:28] LABS: CK (CPK) 9977 U/L (29-168)
[2024-10-27] MEDS ORDERED: diphenhydrAMINE 50 MG/ML VIAL IVP PRN (00:30)
[2024-10-27] MEDS ORDERED: Fentanyl BOLUS 100 ML IVPB PRN (00:30)
[2024-10-27] MEDS ORDERED: Propofol BOLUS 1,000 MG/100 ML VIAL IV PRN (00:30)
[2024-10-27] MEDS ORDERED: diphenhydrAMINE 25 MG CAP PO PRN (00:30)
[2024-10-27] MEDS ORDERED: DISCONTINUE PREVIOUS NARCOTIC PAIN MEDICATIONS AND BENZODIAZEPINES FS SCH (00:30)
[2024-10-27] MEDS ORDERED: Ventilator Sedation Protocol 1 EACH FS SCH (00:30)
[2024-10-27 00:32] LABS: Actual Bicarbonate (HCO3a) 14.0 mEq/L (22-28); Potassium - ABG Lab 6.38 mmol/L (3.70-5.30)
[2024-10-27 00:53] LABS: INR-International Normal Ratio 1.3; Prothrombin Time 16.8 sec (12.0-14.7)
[2024-10-27 00:54] LABS: PTT 34.3 sec (22.9-36.1)
[2024-10-27 01:21] LABS: ALT (SGPT) 793 U/L (Less than 34); AST (SGOT) 1126 U/L (11-34); Albumin 3.5 g/dL (3.1-4.5); Alkaline Phosphatase 159 U/L (40-110); Anion Gap 17 mmol/L (10-20); BUN (Urea Nitrogen) 24 mg/dL (7.0-18.7); Bilirubin, Total 0.5 mg/dL (0.3-1.2); Calc. Creatinine Clearance 0 mL/min (70-130); Calcium 8.3 mg/dL (7.8-10.44); Carbon Dioxide 14 mmol/L (22-29); Chloride 108 mmol/L (98-107); Globulin 2.8 g/dL (2.4-3.5); Glucose 355 mg/dL (70-105); Potassium 7.0 mmol/L (3.5-5.1); Sodium 132 mmol/L (136-145)
[2024-10-27] MEDS ORDERED: Lactulose 20 GM (30 mL) UDCUP ONE (01:34)
[2024-10-27 02:28] LABS: Digoxin Less than 0.19 ng/mL (0.8-2.0)
[2024-10-27] MEDS ORDERED: Acetaminophen 325 MG TAB PO PRN (03:06)
[2024-10-27] MEDS ORDERED: Calcium Carbonate 500 MG ChewTAB PO PRN (03:06)
[2024-10-27] MEDS ORDERED: Guaifenesin DM 100-10/5 ML UDCUP PO PRN (03:06)
[2024-10-27] MEDS ORDERED: Glucagon 1 MG/ML KIT IM PRN (03:08)
[2024-10-27] MEDS ORDERED: Dextrose 50% Abboject 50 ML SYRINGE SLOW IVP PRN (03:08)
[2024-10-27 03:19] LABS: #Basophils Less than 0.03 10x3/uL (0.0-0.2); #Eosinophils Less than 0.03 10x3/uL (0.0-0.7); #Monocytes 0.45 10x3/uL (0.11-0.59); #Neutrophils 10.34 10x3/uL (1.40-6.50); %Basophils 0.2 % (0.0-1.0); %Eosinophils 0.0 % (0.0-10.0); %Lymphocytes 9.6 % (21.0-51.0); %Monocytes 3.7 % (0.0-10.0); %Neutrophils 85.2 % (42.0-75.0); Hematocrit 35.9 % (36.0-47.0); Hemoglobin 11.4 g/dL (12.0-16.0); Mean Corpuscular Hemoglobin 27.2 pg (27.0-31.0); Mean Corpuscular Volume 85.7 fL (78.0-98.0); Platelet Count 169 10x3/uL (130-400); Red Blood Cell (RBC) Count 4.19 mill/uL (4.20-5.40); White Blood Cell (WBC) Count 12.13 10x3/uL (4.8-10.8)
[2024-10-27] MEDS: WATER IV SCH ×3 (03:45→09:04)
[2024-10-27] MEDS: DEXTROSE 5% IV SCH ×3 (03:45→09:04)
[2024-10-27] MEDS: ACETYLCYSTEINE IV SCH ×3 (03:45→09:04)
[2024-10-27] MEDS: LOKELMA 10 GM PACKET PER TUBE SCH (03:53)
[2024-10-27] MEDS: Magnesium 2 GM/50 ML(in water) 2 GM in Premix 1 BAG IVPB SCH (04:20)
[2024-10-27 05:22] LABS: INR-International Normal Ratio 1.4; Prothrombin Time 17.5 sec (12.0-14.7)
[2024-10-27 05:23] LABS: PTT 33.1 sec (22.9-36.1)
[2024-10-27 05:29] LABS: Hb (HGBA1c) 4617.2771 umol/L
[2024-10-27 05:30] LABS: Acetaminophen Less than 10 mcg/mL (Less than 10)
[2024-10-27 05:59] LABS: CK (CPK) 13770 U/L (29-168)
[2024-10-27 06:04] LABS: ALT (SGPT) 1099 U/L (Less than 34); AST (SGOT) 1672 U/L (11-34); Albumin 3.7 g/dL (3.1-4.5); Alkaline Phosphatase 184 U/L (40-110); Anion Gap 19 mmol/L (10-20); BUN (Urea Nitrogen) 24 mg/dL (7.0-18.7); Bilirubin, Total 1.2 mg/dL (0.3-1.2); Calc. Creatinine Clearance 54 mL/min (70-130); Calcium 8.2 mg/dL (7.8-10.44); Carbon Dioxide 15 mmol/L (22-29); Chloride 108 mmol/L (98-107); Globulin 3.2 g/dL (2.4-3.5); Glucose 282 mg/dL (70-105); Potassium 5.3 mmol/L (3.5-5.1); Sodium 137 mmol/L (136-145)
[2024-10-27] MEDS: Famotidine 20 MG TAB PO SCH ×2 (07:50→20:20)
[2024-10-27] MEDS: Famotidine/PF 20 mg/2ml Vial SLOW IVP SCH ×2 (07:55→20:20)
[2024-10-27 08:20] LABS: Hep A IgM AB NONREACTIVE (NonReactive); Hep A IgM S/CO 0.19 S/CO (0-0.79); Hep B Core IgM Index 0.08 S/CO (0-0.79); Hep B Surf Ag NONREACTIVE S/CO (NonReactive); Hep C IgG Ab NONREACTIVE S/CO (NonReactive); Hep C Index 0.10 S/CO (0-0.79)
[2024-10-27] MEDS: Mupirocin 1 GM TUBE NASAL DECOLONIZATION NASAL SCH (09:05)
[2024-10-27 10:07] LABS: ALT (SGPT) 1012 U/L (Less than 34); AST (SGOT) 1876 U/L (11-34); Albumin 3.3 g/dL (3.1-4.5); Alkaline Phosphatase 149 U/L (40-110); Anion Gap 14 mmol/L (10-20); BUN (Urea Nitrogen) 18 mg/dL (7.0-18.7); Bilirubin, Total 0.7 mg/dL (0.3-1.2); Calc. Creatinine Clearance 81 mL/min (70-130); Calcium 8.0 mg/dL (7.8-10.44); Carbon Dioxide 26 mmol/L (22-29); Chloride 108 mmol/L (98-107); Globulin 2.8 g/dL (2.4-3.5); Glucose 221 mg/dL (70-105); Potassium 4.5 mmol/L (3.5-5.1); Sodium 143 mmol/L (136-145)
[2024-10-27 13:38] LABS: ALT (SGPT) 954 U/L (Less than 34); AST (SGOT) 1646 U/L (11-34); Albumin 3.1 g/dL (3.1-4.5); Alkaline Phosphatase 151 U/L (40-110); Anion Gap 14 mmol/L (10-20); BUN (Urea Nitrogen) 16 mg/dL (7.0-18.7); Bilirubin, Total 0.7 mg/dL (0.3-1.2); Calc. Creatinine Clearance 93 mL/min (70-130); Calcium 8.3 mg/dL (7.8-10.44); Carbon Dioxide 25 mmol/L (22-29); Chloride 108 mmol/L (98-107); Globulin 2.7 g/dL (2.4-3.5); Glucose 137 mg/dL (70-105); Potassium 3.9 mmol/L (3.5-5.1); Sodium 143 mmol/L (136-145)
[2024-10-27 18:10] LABS: ALT (SGPT) 923 U/L (Less than 34); AST (SGOT) 1300 U/L (11-34); Albumin 3.0 g/dL (3.1-4.5); Alkaline Phosphatase 150 U/L (40-110); Anion Gap 11 mmol/L (10-20); BUN (Urea Nitrogen) 13 mg/dL (7.0-18.7); Bilirubin, Total 0.7 mg/dL (0.3-1.2); Calc. Creatinine Clearance 106 mL/min (70-130); Calcium 8.2 mg/dL (7.8-10.44); Carbon Dioxide 28 mmol/L (22-29); Chloride 108 mmol/L (98-107); Globulin 2.8 g/dL (2.4-3.5); Glucose 138 mg/dL (70-105); Potassium 3.4 mmol/L (3.5-5.1); Sodium 144 mmol/L (136-145)
[2024-10-27 22:49] LABS: ALT (SGPT) 926 U/L (Less than 34); AST (SGOT) 1114 U/L (11-34); Albumin 2.9 g/dL (3.1-4.5); Alkaline Phosphatase 143 U/L (40-110); Anion Gap 12 mmol/L (10-20); BUN (Urea Nitrogen) 10 mg/dL (7.0-18.7); Bilirubin, Total 0.7 mg/dL (0.3-1.2); Calc. Creatinine Clearance 109 mL/min (70-130); Calcium 8.4 mg/dL (7.8-10.44); Carbon Dioxide 30 mmol/L (22-29); Chloride 106 mmol/L (98-107); Globulin 2.7 g/dL (2.4-3.5); Glucose 176 mg/dL (70-105); Potassium 3.2 mmol/L (3.5-5.1); Sodium 145 mmol/L (136-145)
[2024-10-27] MEDS: Potassium Chloride 40 MEQ in Premix 1 BAG IVPB SCH (23:41)
[2024-10-28 01:42] LABS: ALT (SGPT) 1001 U/L (Less than 34); AST (SGOT) 1109 U/L (11-34); Albumin 2.9 g/dL (3.1-4.5); Alkaline Phosphatase 144 U/L (40-110); Anion Gap 12 mmol/L (10-20); BUN (Urea Nitrogen) 10 mg/dL (7.0-18.7); Bilirubin, Total 0.7 mg/dL (0.3-1.2); Calc. Creatinine Clearance 107 mL/min (70-130); Calcium 8.0 mg/dL (7.8-10.44); Carbon Dioxide 29 mmol/L (22-29); Chloride 106 mmol/L (98-107); Globulin 2.7 g/dL (2.4-3.5); Glucose 146 mg/dL (70-105); Potassium 4.2 mmol/L (3.5-5.1); Sodium 143 mmol/L (136-145)
[2024-10-28] MEDS: DEXTROSE 5% IV SCH (02:40)
[2024-10-28] MEDS: WATER IV SCH (02:40)
[2024-10-28] MEDS: ACETYLCYSTEINE IV SCH (02:40)
[2024-10-28 05:14] LABS: #Basophils Less than 0.03 10x3/uL (0.0-0.2); #Eosinophils 0.04 10x3/uL (0.0-0.7); #Monocytes 0.55 10x3/uL (0.11-0.59); #Neutrophils 7.52 10x3/uL (1.40-6.50); %Basophils 0.2 % (0.0-1.0); %Eosinophils 0.4 % (0.0-10.0); %Lymphocytes 19.7 % (21.0-51.0); %Monocytes 5.4 % (0.0-10.0); %Neutrophils 73.7 % (42.0-75.0); Hematocrit 29.4 % (36.0-47.0); Hemoglobin 10.0 g/dL (12.0-16.0); Mean Corpuscular Hemoglobin 28.1 pg (27.0-31.0); Mean Corpuscular Volume 82.6 fL (78.0-98.0); Platelet Count 140 10x3/uL (130-400); Red Blood Cell (RBC) Count 3.56 mill/uL (4.20-5.40); White Blood Cell (WBC) Count 10.20 10x3/uL (4.8-10.8)
[2024-10-28 05:22] LABS: INR-International Normal Ratio 1.4; Prothrombin Time 17.1 sec (12.0-14.7)
[2024-10-28 05:23] LABS: PTT 39.2 sec (22.9-36.1)
[2024-10-28 05:31] LABS: CK (CPK) 10111 U/L (29-168)
[2024-10-28 05:33] LABS: ALT (SGPT) 1043 U/L (Less than 34); AST (SGOT) 1075 U/L (11-34); Albumin 2.8 g/dL (3.1-4.5); Alkaline Phosphatase 138 U/L (40-110); Anion Gap 11 mmol/L (10-20); BUN (Urea Nitrogen) 9 mg/dL (7.0-18.7); Bilirubin, Total 0.7 mg/dL (0.3-1.2); Calc. Creatinine Clearance 108 mL/min (70-130); Calcium 8.0 mg/dL (7.8-10.44); Carbon Dioxide 31 mmol/L (22-29); Chloride 106 mmol/L (98-107); Globulin 2.6 g/dL (2.4-3.5); Glucose 162 mg/dL (70-105); Potassium 3.4 mmol/L (3.5-5.1); Sodium 145 mmol/L (136-145)
[2024-10-28 07:24] LABS: Actual Bicarbonate (HCO3a) 29.3 mEq/L (22-28); Base Excess (BEa) 5.3 mEq/L (-2.0 to +3.0); CO2 Tension 40.5 mmHg (35.0-45.0); Calcium, Ionized (arterial) 1.12 mmol/L (1.12-1.30); Hematocrit-ABG 33 % (36.0-47.0); Hemoglobin (Hb) 11.1 g/dL (12.0-16.0); O2 Tension (PaO2), arterial 64.0 mmHg (80.0-100.0); Potassium - ABG Lab 3.37 mmol/L (3.70-5.30); pH, Arterial 7.477 (7.35-7.45)
[2024-10-28 07:30] LABS: Puncture Site Left Radial artery
[2024-10-28 07:31] LABS: ALV-art Gradient 99.275 mmHg (0-20)
[2024-10-28] MEDS: Potassium Chloride 20 MEQ in Premix 1 BAG IVPB SCH (10:01)
[2024-10-28 10:15] LABS: ALT (SGPT) 1128 U/L (Less than 34); AST (SGOT) 1091 U/L (11-34); Albumin 2.8 g/dL (3.1-4.5); Alkaline Phosphatase 141 U/L (40-110); Anion Gap 14 mmol/L (10-20); BUN (Urea Nitrogen) 8 mg/dL (7.0-18.7); Bilirubin, Total 0.8 mg/dL (0.3-1.2); Calc. Creatinine Clearance 106 mL/min (70-130); Calcium 8.2 mg/dL (7.8-10.44); Carbon Dioxide 29 mmol/L (22-29); Chloride 106 mmol/L (98-107); Globulin 3.0 g/dL (2.4-3.5); Glucose 122 mg/dL (70-105); Potassium 3.5 mmol/L (3.5-5.1); Sodium 145 mmol/L (136-145)
[2024-10-28 12:33] LABS: ANA Symphony (Qualitative) Negative (Negative); ANA Symphony (Quantitative) 0.3 Ratio (< 0.7 Negative); dsDNA IgG Antibody 1.6 IU/mL (<10 Negative)
[2024-10-28 13:59] LABS: ALT (SGPT) 1224 U/L (Less than 34); AST (SGOT) 1077 U/L (11-34); Albumin 2.9 g/dL (3.1-4.5); Alkaline Phosphatase 145 U/L (40-110); Anion Gap 13 mmol/L (10-20); BUN (Urea Nitrogen) 7 mg/dL (7.0-18.7); Bilirubin, Total 1.1 mg/dL (0.3-1.2); Calc. Creatinine Clearance 118 mL/min (70-130); Calcium 8.3 mg/dL (7.8-10.44); Carbon Dioxide 26 mmol/L (22-29); Chloride 107 mmol/L (98-107); Globulin 2.9 g/dL (2.4-3.5); Glucose 111 mg/dL (70-105); Potassium 4.1 mmol/L (3.5-5.1); Sodium 142 mmol/L (136-145)
[2024-10-28 14:21] LABS: HIV (1/2) Antibody/Antigen NONREACTIVE (NonReactive); HIV 1/2 INDEX 0.07 S/CO (<1.00)
[2024-10-28 16:28] LABS: Influenza A by NAA Not Detected (NotDetected); Influenza B by NAA Not Detected (NotDetected); SARS-CoV-2 NAA Rapid Test Not Detected (NotDetected)
[2024-10-28 17:16] LABS: ALT (SGPT) 1182 U/L (Less than 34); AST (SGOT) 966 U/L (11-34); Albumin 2.9 g/dL (3.1-4.5); Alkaline Phosphatase 139 U/L (40-110); Anion Gap 12 mmol/L (10-20); BUN (Urea Nitrogen) 7 mg/dL (7.0-18.7); Bilirubin, Total 1.2 mg/dL (0.3-1.2); Calc. Creatinine Clearance 116 mL/min (70-130); Calcium 8.3 mg/dL (7.8-10.44); Carbon Dioxide 24 mmol/L (22-29); Chloride 110 mmol/L (98-107); Globulin 2.9 g/dL (2.4-3.5); Glucose 111 mg/dL (70-105); Potassium 3.9 mmol/L (3.5-5.1); Sodium 142 mmol/L (136-145)
[2024-10-28 22:13] LABS: ALT (SGPT) 1221 U/L (Less than 34); AST (SGOT) 854 U/L (11-34); Albumin 3.0 g/dL (3.1-4.5); Alkaline Phosphatase 151 U/L (40-110); Anion Gap 12 mmol/L (10-20); BUN (Urea Nitrogen) 7 mg/dL (7.0-18.7); Bilirubin, Total 1.6 mg/dL (0.3-1.2); Calc. Creatinine Clearance 122 mL/min (70-130); Calcium 8.6 mg/dL (7.8-10.44); Carbon Dioxide 24 mmol/L (22-29); Chloride 111 mmol/L (98-107); Globulin 3.4 g/dL (2.4-3.5); Glucose 110 mg/dL (70-105); Potassium 4.0 mmol/L (3.5-5.1); Sodium 143 mmol/L (136-145)
[2024-10-29 04:35] LABS: #Basophils Less than 0.03 10x3/uL (0.0-0.2); #Eosinophils Less than 0.03 10x3/uL (0.0-0.7); #Monocytes 0.34 10x3/uL (0.11-0.59); #Neutrophils 9.89 10x3/uL (1.40-6.50); %Basophils 0.2 % (0.0-1.0); %Eosinophils 0.1 % (0.0-10.0); %Lymphocytes 5.7 % (21.0-51.0); %Monocytes 3.1 % (0.0-10.0); %Neutrophils 90.1 % (42.0-75.0); Hematocrit 35.1 % (36.0-47.0); Hemoglobin 11.0 g/dL (12.0-16.0); Mean Corpuscular Hemoglobin 26.8 pg (27.0-31.0); Mean Corpuscular Volume 85.4 fL (78.0-98.0); Platelet Count 154 10x3/uL (130-400); Red Blood Cell (RBC) Count 4.11 mill/uL (4.20-5.40); White Blood Cell (WBC) Count 10.98 10x3/uL (4.8-10.8)
[2024-10-29 04:50] LABS: ALT (SGPT) 1136 U/L (Less than 34); AST (SGOT) 603 U/L (11-34); Albumin 2.9 g/dL (3.1-4.5); Alkaline Phosphatase 158 U/L (40-110); Anion Gap 14 mmol/L (10-20); BUN (Urea Nitrogen) 6 mg/dL (7.0-18.7); Bilirubin, Total 2.2 mg/dL (0.3-1.2); Calc. Creatinine Clearance 144 mL/min (70-130); Calcium 8.6 mg/dL (7.8-10.44); Carbon Dioxide 23 mmol/L (22-29); Chloride 108 mmol/L (98-107); Globulin 3.5 g/dL (2.4-3.5); Glucose 109 mg/dL (70-105); Potassium 4.3 mmol/L (3.5-5.1); Sodium 141 mmol/L (136-145)
[2024-10-29] MEDS: Cyproheptadine 4 MG TAB PER TUBE SCH (09:21)
[2024-10-29] MEDS: Cyproheptadine 4 MG TAB PO SCH ×2 (11:01→19:58)
[2024-10-30 04:22] LABS: #Basophils 0.04 10x3/uL (0.0-0.2); #Eosinophils 0.15 10x3/uL (0.0-0.7); #Monocytes 0.56 10x3/uL (0.11-0.59); #Neutrophils 10.34 10x3/uL (1.40-6.50); %Basophils 0.3 % (0.0-1.0); %Eosinophils 1.2 % (0.0-10.0); %Lymphocytes 13.5 % (21.0-51.0); %Monocytes 4.3 % (0.0-10.0); %Neutrophils 80.0 % (42.0-75.0); Hematocrit 30.6 % (36.0-47.0); Hemoglobin 9.9 g/dL (12.0-16.0); Mean Corpuscular Hemoglobin 27.9 pg (27.0-31.0); Mean Corpuscular Volume 86.2 fL (78.0-98.0); Platelet Count 162 10x3/uL (130-400); Red Blood Cell (RBC) Count 3.55 mill/uL (4.20-5.40); White Blood Cell (WBC) Count 12.93 10x3/uL (4.8-10.8)
[2024-10-30 04:32] LABS: ALT (SGPT) 686 U/L (Less than 34); AST (SGOT) 210 U/L (11-34); Albumin 2.5 g/dL (3.1-4.5); Alkaline Phosphatase 134 U/L (40-110); Anion Gap 12 mmol/L (10-20); BUN (Urea Nitrogen) 6 mg/dL (7.0-18.7); Bilirubin, Total 1.0 mg/dL (0.3-1.2); CK (CPK) 3459 U/L (29-168); Calc. Creatinine Clearance 137 mL/min (70-130); Calcium 8.4 mg/dL (7.8-10.44); Carbon Dioxide 23 mmol/L (22-29); Chloride 111 mmol/L (98-107); Globulin 3.5 g/dL (2.4-3.5); Glucose 116 mg/dL (70-105); Potassium 3.7 mmol/L (3.5-5.1); Sodium 142 mmol/L (136-145)
[2024-10-30 05:25] LABS: PTT 41.5 sec (22.9-36.1)
[2024-10-30 06:24] LABS: INR-International Normal Ratio 1.5; Prothrombin Time 18.6 sec (12.0-14.7)
[2024-10-30 09:08] LABS: Acetaminophen Less than 10 mcg/mL (Less than 10)
[2024-10-31 04:27] LABS: #Basophils 0.03 10x3/uL (0.0-0.2); #Eosinophils 0.26 10x3/uL (0.0-0.7); #Monocytes 0.55 10x3/uL (0.11-0.59); #Neutrophils 7.13 10x3/uL (1.40-6.50); %Basophils 0.3 % (0.0-1.0); %Eosinophils 2.7 % (0.0-10.0); %Lymphocytes 15.2 % (21.0-51.0); %Monocytes 5.8 % (0.0-10.0); %Neutrophils 75.2 % (42.0-75.0); Hematocrit 30.0 % (36.0-47.0); Hemoglobin 9.3 g/dL (12.0-16.0); Mean Corpuscular Hemoglobin 26.7 pg (27.0-31.0); Mean Corpuscular Volume 86.2 fL (78.0-98.0); Platelet Count 183 10x3/uL (130-400); Red Blood Cell (RBC) Count 3.48 mill/uL (4.20-5.40); White Blood Cell (WBC) Count 9.49 10x3/uL (4.8-10.8)
[2024-10-31 04:53] LABS: ALT (SGPT) 463 U/L (Less than 34); AST (SGOT) 130 U/L (11-34); Albumin 2.5 g/dL (3.1-4.5); Alkaline Phosphatase 124 U/L (40-110); Anion Gap 10 mmol/L (10-20); BUN (Urea Nitrogen) 6 mg/dL (7.0-18.7); Bilirubin, Total 0.7 mg/dL (0.3-1.2); CK (CPK) 2683 U/L (29-168); Calc. Creatinine Clearance 140 mL/min (70-130); Calcium 8.9 mg/dL (7.8-10.44); Carbon Dioxide 24 mmol/L (22-29); Chloride 115 mmol/L (98-107); Globulin 3.8 g/dL (2.4-3.5); Glucose 89 mg/dL (70-105); Potassium 3.9 mmol/L (3.5-5.1); Sodium 145 mmol/L (136-145)
[2024-10-31] MEDS: Cyproheptadine 4 MG TAB PO SCH (16:25)
[2024-11-01 04:19] LABS: #Basophils Less than 0.03 10x3/uL (0.0-0.2); #Eosinophils 0.26 10x3/uL (0.0-0.7); #Monocytes 0.49 10x3/uL (0.11-0.59); #Neutrophils 2.92 10x3/uL (1.40-6.50); %Basophils 0.4 % (0.0-1.0); %Eosinophils 5.0 % (0.0-10.0); %Lymphocytes 27.2 % (21.0-51.0); %Monocytes 9.5 % (0.0-10.0); %Neutrophils 56.4 % (42.0-75.0); Hematocrit 29.5 % (36.0-47.0); Hemoglobin 9.2 g/dL (12.0-16.0); Mean Corpuscular Hemoglobin 27.0 pg (27.0-31.0); Mean Corpuscular Volume 86.5 fL (78.0-98.0); Platelet Count 189 10x3/uL (130-400); Red Blood Cell (RBC) Count 3.41 mill/uL (4.20-5.40); White Blood Cell (WBC) Count 5.18 10x3/uL (4.8-10.8)
[2024-11-02 04:07] LABS: #Basophils Less than 0.03 10x3/uL (0.0-0.2); #Eosinophils 0.21 10x3/uL (0.0-0.7); #Monocytes 0.50 10x3/uL (0.11-0.59); #Neutrophils 2.51 10x3/uL (1.40-6.50); %Basophils 0.2 % (0.0-1.0); %Eosinophils 4.6 % (0.0-10.0); %Lymphocytes 27.2 % (21.0-51.0); %Monocytes 10.9 % (0.0-10.0); %Neutrophils 54.7 % (42.0-75.0); Hematocrit 25.5 % (36.0-47.0); Hemoglobin 8.3 g/dL (12.0-16.0); Mean Corpuscular Hemoglobin 27.2 pg (27.0-31.0); Mean Corpuscular Volume 83.6 fL (78.0-98.0); Platelet Count 169 10x3/uL (130-400); Red Blood Cell (RBC) Count 3.05 mill/uL (4.20-5.40); White Blood Cell (WBC) Count 4.59 10x3/uL (4.8-10.8)
[2024-11-02 04:27] LABS: ALT (SGPT) 215 U/L (Less than 34); AST (SGOT) 63 U/L (11-34); Albumin 2.1 g/dL (3.1-4.5); Alkaline Phosphatase 104 U/L (40-110); Anion Gap 11 mmol/L (10-20); BUN (Urea Nitrogen) 9 mg/dL (7.0-18.7); Bilirubin, Total 0.5 mg/dL (0.3-1.2); Calc. Creatinine Clearance 183 mL/min (70-130); Calcium 8.3 mg/dL (7.8-10.44); Carbon Dioxide 26 mmol/L (22-29); Chloride 111 mmol/L (98-107); Globulin 3.6 g/dL (2.4-3.5); Glucose 114 mg/dL (70-105); Magnesium 1.8 mg/dL (1.6-2.6); Potassium 3.4 mmol/L (3.5-5.1); Sodium 145 mmol/L (136-145)
[2024-11-02] MEDS: Magnesium 2 GM/50 ML(in water) 2 GM in Premix 1 BAG IVPB SCH (09:02)
[2024-11-02] MEDS: Potassium Chloride 20 MEQ in Premix 1 BAG IVPB SCH (09:02)
[2024-11-02 12:07] LABS: Anion Gap 13 mmol/L (10-20); BUN (Urea Nitrogen) 9 mg/dL (7.0-18.7); CK (CPK) 1009 U/L (29-168); Calc. Creatinine Clearance 202 mL/min (70-130); Calcium 8.4 mg/dL (7.8-10.44); Carbon Dioxide 25 mmol/L (22-29); Chloride 111 mmol/L (98-107); Glucose 114 mg/dL (70-105); Potassium 4.0 mmol/L (3.5-5.1); Sodium 145 mmol/L (136-145)
[2024-11-02 12:15] LABS: Osmolality, Serum 309 mOsm/kg (275-295)
[2024-11-02 12:33] LABS: Osmolality, Urine 196 mOsm/kg (50-1200)
[2024-11-03 02:05] LABS: Osmolality, Urine 245 mOsm/kg (50-1200)
[2024-11-03 02:14] LABS: Albumin 2.5 g/dL (3.1-4.5); Anion Gap 13 mmol/L (10-20); BUN (Urea Nitrogen) 8 mg/dL (7.0-18.7); BUN/Creatinine Ratio 14.81; Calc. Creatinine Clearance 216 mL/min (70-130); Calcium 8.5 mg/dL (7.8-10.44); Carbon Dioxide 26 mmol/L (22-29); Chloride 109 mmol/L (98-107); Glucose 115 mg/dL (70-105); Potassium 3.8 mmol/L (3.5-5.1); Sodium 144 mmol/L (136-145)
[2024-11-03 03:18] LABS: #Basophils Less than 0.03 10x3/uL (0.0-0.2); #Eosinophils 0.18 10x3/uL (0.0-0.7); #Monocytes 0.67 10x3/uL (0.11-0.59); #Neutrophils 4.96 10x3/uL (1.40-6.50); %Basophils 0.3 % (0.0-1.0); %Eosinophils 2.3 % (0.0-10.0); %Lymphocytes 22.6 % (21.0-51.0); %Monocytes 8.5 % (0.0-10.0); %Neutrophils 62.8 % (42.0-75.0); Hematocrit 26.4 % (36.0-47.0); Hemoglobin 9.0 g/dL (12.0-16.0); Mean Corpuscular Hemoglobin 27.9 pg (27.0-31.0); Mean Corpuscular Volume 81.7 fL (78.0-98.0); Platelet Count 218 10x3/uL (130-400); Red Blood Cell (RBC) Count 3.23 mill/uL (4.20-5.40); White Blood Cell (WBC) Count 7.89 10x3/uL (4.8-10.8)
[2024-11-03 06:25] LABS: ALT (SGPT) 191 U/L (Less than 34); AST (SGOT) 88 U/L (11-34); Albumin 2.5 g/dL (3.1-4.5); Alkaline Phosphatase 136 U/L (40-110); Anion Gap 15 mmol/L (10-20); BUN (Urea Nitrogen) 10 mg/dL (7.0-18.7); Bilirubin, Total 0.6 mg/dL (0.3-1.2); Calc. Creatinine Clearance 190 mL/min (70-130); Calcium 8.7 mg/dL (7.8-10.44); Carbon Dioxide 24 mmol/L (22-29); Chloride 110 mmol/L (98-107); Globulin 4.1 g/dL (2.4-3.5); Glucose 117 mg/dL (70-105); Potassium 3.8 mmol/L (3.5-5.1); Sodium 145 mmol/L (136-145)
[2024-11-03] MEDS ORDERED: Sodium Bicarbonate 2.5 MEQ/5 ML SDV ONE (08:12)
[2024-11-03 08:37] LABS: Osmolality, Serum 297 mOsm/kg (275-295)
[2024-11-03 10:15] LABS: Color Of CSF Supernatant COLORLESS (Colorless); Unspun CSF Color COLORLESS (Colorless)
[2024-11-03 10:33] LABS: CSF, Glucose 77 mg/dl (40-70); CSF, Protein 21.8 mg/dL (15-40)
[2024-11-03 10:42] LABS: CSF Source CSF
[2024-11-03] MEDS: Enoxaparin 40 MG (0.4 mL) SYRINGE SC SCH (11:34)
[2024-11-03] MEDS: DC Sedation Protocol FS ONE (15:19)
[2024-11-04 04:28] LABS: #Basophils 0.03 10x3/uL (0.0-0.2); #Eosinophils 0.06 10x3/uL (0.0-0.7); #Monocytes 0.91 10x3/uL (0.11-0.59); #Neutrophils 6.56 10x3/uL (1.40-6.50); %Basophils 0.3 % (0.0-1.0); %Eosinophils 0.6 % (0.0-10.0); %Lymphocytes 25.5 % (21.0-51.0); %Monocytes 8.7 % (0.0-10.0); %Neutrophils 62.4 % (42.0-75.0); Hematocrit 28.7 % (36.0-47.0); Hemoglobin 9.3 g/dL (12.0-16.0); Mean Corpuscular Hemoglobin 26.8 pg (27.0-31.0); Mean Corpuscular Volume 82.7 fL (78.0-98.0); Platelet Count 339 10x3/uL (130-400); Red Blood Cell (RBC) Count 3.47 mill/uL (4.20-5.40); White Blood Cell (WBC) Count 10.50 10x3/uL (4.8-10.8)
[2024-11-04 05:08] LABS: ALT (SGPT) 191 U/L (Less than 34); AST (SGOT) 139 U/L (11-34); Albumin 2.6 g/dL (3.1-4.5); Alkaline Phosphatase 144 U/L (40-110); Anion Gap 15 mmol/L (10-20); BUN (Urea Nitrogen) 10 mg/dL (7.0-18.7); Bilirubin, Total 0.6 mg/dL (0.3-1.2); Calc. Creatinine Clearance 184 mL/min (70-130); Calcium 8.8 mg/dL (7.8-10.44); Carbon Dioxide 21 mmol/L (22-29); Chloride 106 mmol/L (98-107); Globulin 4.3 g/dL (2.4-3.5); Glucose 84 mg/dL (70-105); Potassium 3.9 mmol/L (3.5-5.1); Sodium 138 mmol/L (136-145)
[2024-11-04] MEDS: Enoxaparin 40 MG (0.4 mL) SYRINGE SC SCH (07:37)
[2024-11-04] MEDS: Linezolid 600 MG in Premix 1 BAG IVPB SCH ×2 (10:51→20:29)
[2024-11-05 00:09] LABS: HSV 1 - DNA, CSF Negative (Negative); HSV 2 - DNA, CSF Negative (Negative)
[2024-11-05 07:50] LABS: #Basophils 0.04 10x3/uL (0.0-0.2); #Eosinophils 0.09 10x3/uL (0.0-0.7); #Monocytes 0.92 10x3/uL (0.11-0.59); #Neutrophils 6.45 10x3/uL (1.40-6.50); %Basophils 0.4 % (0.0-1.0); %Eosinophils 0.9 % (0.0-10.0); %Lymphocytes 26.2 % (21.0-51.0); %Monocytes 8.8 % (0.0-10.0); %Neutrophils 61.7 % (42.0-75.0); Hematocrit 31.0 % (36.0-47.0); Hemoglobin 10.1 g/dL (12.0-16.0); Mean Corpuscular Hemoglobin 26.9 pg (27.0-31.0); Mean Corpuscular Volume 82.7 fL (78.0-98.0); Platelet Count 392 10x3/uL (130-400); Red Blood Cell (RBC) Count 3.75 mill/uL (4.20-5.40); White Blood Cell (WBC) Count 10.45 10x3/uL (4.8-10.8)
[2024-11-05 13:12] LABS: West Nile Virus IgG Ab - CSF Negative (Negative); West Nile Virus IgM Ab - CSF Negative (Negative)
[2024-11-06 04:56] LABS: #Basophils 0.03 10x3/uL (0.0-0.2); #Eosinophils 0.11 10x3/uL (0.0-0.7); #Monocytes 0.84 10x3/uL (0.11-0.59); #Neutrophils 6.10 10x3/uL (1.40-6.50); %Basophils 0.3 % (0.0-1.0); %Eosinophils 1.2 % (0.0-10.0); %Lymphocytes 24.1 % (21.0-51.0); %Monocytes 8.9 % (0.0-10.0); %Neutrophils 64.2 % (42.0-75.0); Hematocrit 29.6 % (36.0-47.0); Hemoglobin 9.6 g/dL (12.0-16.0); Mean Corpuscular Hemoglobin 26.9 pg (27.0-31.0); Mean Corpuscular Volume 82.9 fL (78.0-98.0); Platelet Count 398 10x3/uL (130-400); Red Blood Cell (RBC) Count 3.57 mill/uL (4.20-5.40); White Blood Cell (WBC) Count 9.49 10x3/uL (4.8-10.8)
[2024-11-06 05:09] LABS: Immunoglob - G (Total IgG) 1070 mg/dL (552-1631); Immunoglob - M (Total IgM) 150 mg/dL (33-293)
[2024-11-06 05:18] LABS: INR-International Normal Ratio 1.2; Prothrombin Time 15.0 sec (12.0-14.7)
[2024-11-06 05:35] LABS: ALT (SGPT) 132 U/L (Less than 34); AST (SGOT) 66 U/L (11-34); Albumin 2.8 g/dL (3.1-4.5); Alkaline Phosphatase 111 U/L (40-110); Anion Gap 14 mmol/L (10-20); BUN (Urea Nitrogen) 9 mg/dL (7.0-18.7); Bilirubin, Total 0.6 mg/dL (0.3-1.2); CK (CPK) 204 U/L (29-168); Calc. Creatinine Clearance 176 mL/min (70-130); Calcium 8.7 mg/dL (7.8-10.44); Carbon Dioxide 22 mmol/L (22-29); Chloride 106 mmol/L (98-107); Globulin 3.9 g/dL (2.4-3.5); Glucose 98 mg/dL (70-105); Iron 44 ug/dL (50-170); Iron Binding Capacity, Total 250 mcg/dL (265-497); Potassium 3.8 mmol/L (3.5-5.1); Sodium 138 mmol/L (136-145)
[2024-11-06 06:11] VITALS: BMI 36.8
[2024-11-06 12:41] LABS: EliA Vaculitis New Method **** NEW METHOD ****; Mitochondrial Ab 1.0 U/mL (<4 Negative)
[2024-11-06 14:15] LABS: VDRL, CSF Non Reactive (Non Rea:<1:1)
[2024-11-07 05:14] LABS: #Basophils 0.04 10x3/uL (0.0-0.2); #Eosinophils 0.14 10x3/uL (0.0-0.7); #Monocytes 0.58 10x3/uL (0.11-0.59); #Neutrophils 4.01 10x3/uL (1.40-6.50); %Basophils 0.5 % (0.0-1.0); %Eosinophils 1.9 % (0.0-10.0); %Lymphocytes 33.2 % (21.0-51.0); %Monocytes 7.9 % (0.0-10.0); %Neutrophils 54.7 % (42.0-75.0); Hematocrit 30.2 % (36.0-47.0); Hemoglobin 9.9 g/dL (12.0-16.0); Mean Corpuscular Hemoglobin 27.3 pg (27.0-31.0); Mean Corpuscular Volume 83.2 fL (78.0-98.0); Platelet Count 443 10x3/uL (130-400); Red Blood Cell (RBC) Count 3.63 mill/uL (4.20-5.40); White Blood Cell (WBC) Count 7.33 10x3/uL (4.8-10.8)
[2024-11-07] MEDS: Acetaminophen 325 MG TAB PO PRN (18:44)
[2024-11-08 05:48] LABS: #Basophils 0.03 10x3/uL (0.0-0.2); #Eosinophils 0.16 10x3/uL (0.0-0.7); #Monocytes 0.51 10x3/uL (0.11-0.59); #Neutrophils 3.62 10x3/uL (1.40-6.50); %Basophils 0.5 % (0.0-1.0); %Eosinophils 2.4 % (0.0-10.0); %Lymphocytes 33.3 % (21.0-51.0); %Monocytes 7.8 % (0.0-10.0); %Neutrophils 54.9 % (42.0-75.0); Hematocrit 29.5 % (36.0-47.0); Hemoglobin 9.5 g/dL (12.0-16.0); Mean Corpuscular Hemoglobin 26.6 pg (27.0-31.0); Mean Corpuscular Volume 82.6 fL (78.0-98.0); Platelet Count 438 10x3/uL (130-400); Red Blood Cell (RBC) Count 3.57 mill/uL (4.20-5.40); White Blood Cell (WBC) Count 6.58 10x3/uL (4.8-10.8)
[2024-11-09 05:36] LABS: #Basophils 0.04 10x3/uL (0.0-0.2); #Eosinophils 0.14 10x3/uL (0.0-0.7); #Monocytes 0.48 10x3/uL (0.11-0.59); #Neutrophils 2.25 10x3/uL (1.40-6.50); %Basophils 0.7 % (0.0-1.0); %Eosinophils 2.5 % (0.0-10.0); %Lymphocytes 47.8 % (21.0-51.0); %Monocytes 8.5 % (0.0-10.0); %Neutrophils 40.0 % (42.0-75.0); Hematocrit 29.4 % (36.0-47.0); Hemoglobin 9.6 g/dL (12.0-16.0); Mean Corpuscular Hemoglobin 27.1 pg (27.0-31.0); Mean Corpuscular Volume 83.1 fL (78.0-98.0); Platelet Count 456 10x3/uL (130-400); Red Blood Cell (RBC) Count 3.54 mill/uL (4.20-5.40); White Blood Cell (WBC) Count 5.63 10x3/uL (4.8-10.8)
[2024-11-09] MEDS: Naproxen 500 MG TAB PO SCH (22:36)
[2024-11-10 05:48] LABS: Hematocrit 27.9 % (36.0-47.0); Hemoglobin 9.2 g/dL (12.0-16.0); Mean Corpuscular Hemoglobin 27.5 pg (27.0-31.0); Mean Corpuscular Volume 83.3 fL (78.0-98.0); Platelet Count 502 10x3/uL (130-400); Red Blood Cell (RBC) Count 3.35 mill/uL (4.20-5.40); White Blood Cell (WBC) Count 5.54 10x3/uL (4.8-10.8)
[2024-11-10 06:22] LABS: Platelet Adequacy Comment Platelets Increased; RBC Morphology Within Normal Limits; Smudge Cells 29.0 %
[2024-11-10] MEDS: Naproxen 500 MG TAB PO PRN (12:23)
[2024-11-11 05:04] LABS: #Basophils 0.04 10x3/uL (0.0-0.2); #Eosinophils 0.16 10x3/uL (0.0-0.7); #Monocytes 0.38 10x3/uL (0.11-0.59); #Neutrophils 1.60 10x3/uL (1.40-6.50); %Basophils 0.9 % (0.0-1.0); %Eosinophils 3.5 % (0.0-10.0); %Lymphocytes 52.3 % (21.0-51.0); %Monocytes 8.2 % (0.0-10.0); %Neutrophils 34.7 % (42.0-75.0); Hematocrit 27.8 % (36.0-47.0); Hemoglobin 9.0 g/dL (12.0-16.0); Mean Corpuscular Hemoglobin 27.3 pg (27.0-31.0); Mean Corpuscular Volume 84.2 fL (78.0-98.0); Platelet Count 518 10x3/uL (130-400); Red Blood Cell (RBC) Count 3.30 mill/uL (4.20-5.40); White Blood Cell (WBC) Count 4.61 10x3/uL (4.8-10.8)
[2024-11-11 10:18] LABS: ALT (SGPT) 68 U/L (Less than 34); AST (SGOT) 45 U/L (11-34); Albumin 3.3 g/dL (3.1-4.5); Alkaline Phosphatase 94 U/L (40-110); Anion Gap 14 mmol/L (10-20); BUN (Urea Nitrogen) 5 mg/dL (7.0-18.7); Bilirubin, Total 0.5 mg/dL (0.3-1.2); Calc. Creatinine Clearance 170 mL/min (70-130); Calcium 8.8 mg/dL (7.8-10.44); Carbon Dioxide 21 mmol/L (22-29); Chloride 109 mmol/L (98-107); Globulin 3.5 g/dL (2.4-3.5); Glucose 108 mg/dL (70-105); Potassium 3.9 mmol/L (3.5-5.1); Sodium 140 mmol/L (136-145)
[2024-11-11 12:41] VITALS: BMI 35.4
[2024-11-11 17:19] VITALS: BP 141/94; TEMP 98.4
== END 2024-11-11 18:03 | disposition home or self-care (01) | DRG 917 ==
LOC: ERS 22:23 → CCU 10-27 00:09 → MSONC 11-06 11:35
PROVIDERS: ADMIT Student in an Organized Health Care Education/Training Program; ATTEND Internal Medicine
PROC: 4A133R1 Monitoring of Arterial Saturation, Peripheral, Percutaneous Approach (ICD-10-PCS; 2024-10-27)
PROC: 3E033XZ Introduction of Vasopressor into Peripheral Vein, Percutaneous Approach (ICD-10-PCS; 2024-10-27)
PROC: 3E043XZ Introduction of Vasopressor into Central Vein, Percutaneous Approach (ICD-10-PCS; 2024-10-27)
PROC: 3E03329 Introduction of Other Anti-infective into Peripheral Vein, Percutaneous Approach (ICD-10-PCS; 2024-10-27)
PROC: 3E04329 Introduction of Other Anti-infective into Central Vein, Percutaneous Approach (ICD-10-PCS; 2024-10-27)
PROC: 0T9B70Z Drainage of Bladder with Drainage Device, Via Natural or Artificial Opening (ICD-10-PCS; 2024-10-27)
PROC: 5A1955Z Respiratory Ventilation, Greater than 96 Consecutive Hours (ICD-10-PCS; 2024-10-27)
PROC: 06HY33Z Insertion of Infusion Device into Lower Vein, Percutaneous Approach (ICD-10-PCS; 2024-10-27)
PROC: 0BH17EZ Insertion of Endotracheal Airway into Trachea, Via Natural or Artificial Opening (ICD-10-PCS; 2024-10-27)
PROC: 0D9670Z Drainage of Stomach with Drainage Device, Via Natural or Artificial Opening (ICD-10-PCS; 2024-10-27)
PROC: 009U3ZZ Drainage of Spinal Canal, Percutaneous Approach (ICD-10-PCS; principal; 2024-11-03)
PROC: B01B1ZZ Fluoroscopy of Spinal Cord using Low Osmolar Contrast (ICD-10-PCS; 2024-11-03)
PROC: 3E03328 Introduction of Oxazolidinones into Peripheral Vein, Percutaneous Approach (ICD-10-PCS; 2024-11-04)
PROC: 05HY33Z Insertion of Infusion Device into Upper Vein, Percutaneous Approach (ICD-10-PCS; 2024-11-06)
DX: T40.601A Poisoning by unspecified narcotics, accidental (unintentional), initial encounter (principal); A41.9 Sepsis, unspecified organism; G92.8 Other toxic encephalopathy; J96.01 Acute respiratory failure with hypoxia; R57.0 Cardiogenic shock; J15.211 Pneumonia due to Methicillin susceptible Staphylococcus aureus; K72.00 Acute and subacute hepatic failure without coma; J69.0 Pneumonitis due to inhalation of food and vomit; R57.8 Other shock; R65.21 Severe sepsis with septic shock; M62.82 Rhabdomyolysis; N17.9 Acute kidney failure, unspecified; E87.1 Hypo-osmolality and hyponatremia; E87.21 Acute metabolic acidosis; F11.20 Opioid dependence, uncomplicated; F33.9 Major depressive disorder, recurrent, unspecified; R47.01 Aphasia; Z16.11 Resistance to penicillins; I82.612 Acute embolism and thrombosis of superficial veins of left upper extremity; E87.5 Hyperkalemia; E11.9 Type 2 diabetes mellitus without complications; G89.4 Chronic pain syndrome; F41.9 Anxiety disorder, unspecified; I10 Essential (primary) hypertension; E66.9 Obesity, unspecified; M47.812 Spondylosis without myelopathy or radiculopathy, cervical region; Z88.8 Allergy status to other drugs, medicaments and biological substances; Z88.6 Allergy status to analgesic agent; Z98.890 Other specified postprocedural states; Z90.710 Acquired absence of both cervix and uterus; Z90.49 Acquired absence of other specified parts of digestive tract; Z68.35 Body mass index [BMI] 35.0-35.9, adult; Z88.5 Allergy status to narcotic agent; N80.9 Endometriosis, unspecified; Z78.1 Physical restraint status; G83.9 Paralytic syndrome, unspecified; I80.9 Phlebitis and thrombophlebitis of unspecified site
CPT/HCPCS: 31500; 36415; 36416; 36556; 36600; 51702; 62270; 70450; 70553; 71045; 72141; 76376; 76700; 80053; 80074; 80143; 80162; 80306; 80307; 82140; 82390; 82550; 82728; 82805; 82945; 83036; 83516; 83540; 83550; 83605; 83735; 83930; 83935; 84100; 84157; 84300; 84478; 84703; 85025; 85610; 85730; 86015; 86038; 86141; 86225; 86592; 86612; 86635; 86698; 86788; 86789; 87040; 87070; 87077; 87086; 87186; 87205; 87389; 87529; 87636; 87798; 89051; 93005; 93970; 94002; 94003; 96361; 96365; 96366; 96367; 96368; 96374; 96375; 97139; 99292; J0132; J0169; J1308; J1650; J1720; J1815; J2020; J2185; J2248; J2250; J2270; J2310; J2405; J2543; J2597; J2704; J3411; J3475; J3480; J7030; J7070; J7120; J7611; J7999

== ENCOUNTER 2024-11-22 14:04 | Emergency (ER) | payer MEDICAID, OTHER | END 2024-11-22 18:10 | disposition home or self-care (01) | LOC: ERS 14:04 | DX: R05.1 Acute cough (principal); I10 Essential (primary) hypertension; E11.9 Type 2 diabetes mellitus without complications | CPT/HCPCS: 87428; 99283 ==